=== PATIENT | male | born 1965 | race Two or more races ===

== ENCOUNTER 2024-09-27 12:58 | Inpatient (IN) | payer BC, SELFPAY ==
[2024-09-27] VITALS (96 sets, daily range): BP systolic 000000–172; BP diastolic 0–128; PULSE 92–246; RESP 10–45; TEMP 37.6–40.2; O2SAT 92–100; BMI 43.7
--- NOTE | 2024-09-27 13:42 | XR_ITS ---
Examination: AP chest single view Technique: AP portable semiupright chest single view Exam date and time: September 27, 2024 1421 hrs. Indications: Sepsis shortness of breath today Findings: Mild heart failure Mild to moderate enlargement cardiac contour with prominent vascular congestion including central vascular engorgement Suspicious for early superimposed pneumonia at the lung bases Impression: Mild heart failure Suspicious for early superimposed pneumonia at the lung bases
--- NOTE | 2024-09-27 13:42 | EKG_ITS ---
[facility] Test Date: 2024-09-27 Pat Name: TONY SAVAGE Department: Room: - Gender: Male Spinal Surgeon: : [id number] Requested By: Mauri Myers Order Number: [id number] Reading MD: Mauri Myers Measurements Intervals [place] Rate: 206 P: MD: QRS: -78 QRSD: 139 T: 33 QT: 230 QTc: 427 Interpretive Statements ATRIAL FIBRILLATION WITH RAPID VENTRICULAR RESPONSE RIGHT BUNDLE BRANCH BLOCK [120+ ms QRS DURATION, UPRIGHT V1, 40+ ms S IN I/aVL/V4/V5/V6] INFERIOR MYOCARDIAL INFARCTION , OF INDETERMINATE AGE [40+ ms Q WAVE AND/OR ST/T ABNORMALITY IN II/aVF] Compared to ECG 06/27/2024 20:49:31 Right bundle-branch block now present Myocardial infarct finding now present Sinus rhythm no longer present /store/S0/[id number]/ecg/[id number].pdf
--- NOTE | 2024-09-27 13:45 | PD.EDSOB ---
ED SOB =RME/HPI General Chief Complaint: Shortness of Breath/Dyspnea Stated Complaint: HARD TIME BREATHING , SORE THROAT, CX PAIN, FEVER Time Seen by Provider: 09/27/24 13:44 Arrival date/time: 09/27/24 12:58 RME / HPI RME / HPI Narrative: DR. NEVAREZ MAIN ED EVALUATION: 59 year old male presents to the Emergency Department accompanied by his with complaints of shortness of breath, nasal congestion, fevers, chills, cough, sore throat, and generalized body aches. Symptoms are moderate. Patient denies any nausea, vomiting, diarrhea, or any other symptoms at this time. PMHx: Atrial fibrillation on Xarelto, CHF, diabetes, hypercholesterolemia. Social Hx: No tobacco, alcohol, or substance use. Related Data Home Medications ?Medication ?Instructions ?Recorded ?Confirmed glipizide 10 mg tablet, extended 10 mg PO BID 10/25/23 10/25/23 release 24 hr metformin 500 mg tablet 500 mg PO BID 10/25/23 10/25/23 tirzepatide 7.5 mg/0.5 mL 7.5 mg subcut QWEEK 10/25/23 10/25/23 subcutaneous pen injector (Edgarunbernard) Previous Rx's ?Medication ?Instructions ?Recorded atorvastatin 20 mg tablet 40 mg (2 x 20 mg) PO HS #30 tabs 10/26/23 flecainide 50 mg tablet 100 mg (2 x 50 mg) PO BID #30 tabs 10/26/23 magnesium oxide 400 mg (241.3 mg 400 mg PO BID #60 tabs 10/26/23 magnesium) tablet metoprolol succinate 25 mg 50 mg (2 x 25 mg) PO QDAY #30 tabs 10/26/23 tablet,extended release 24 hr rivaroxaban 10 mg tablet (Xarelto) 20 mg (2 x 10 mg) PO QDAY #30 tabs 10/26/23 amoxicillin 875 mg-potassium 1 tab PO BID #14 tabs 06/27/24 clavulanate 125 mg tablet ibuprofen 800 mg tablet 800 mg PO TID PRN pain #30 tabs 06/27/24 Allergies Allergy/AdvReac Type Severity Reaction Status Date / Time No Known Allergies Allergy Verified 09/27/24 13:00 Review of Systems Review of Systems Systems Reviewed: All systems reviewed, normal except as documented Narrative Review of Systems: GEN: + fever, no chills, no weight loss EYES: No discharge, no visual changes, no pain HEENT: No ear pain, + nasal congestion, + sore throat PULM: + shortness of breath, + cough CV: No chest pain, no dyspnea on exertion, no palpitations GI: No nausea, no vomiting, no diarrhea, no pain, no constipation : No frequency, no urgency and no dysuria MUSC/SKEL: + generalized body aches, no back pain SKIN: No rash PSYCH: No hallucinations, no depression HEME/LYMPH: No easy bleeding or bruising tendencies NEURO: No weakness, no headache Past Medical History Past Medical History CARDIAC: Positive Cardiac Disorders (htn); Negative Congestive Heart Failure RESPIRATORY: Positive Pneumonia; Negative Chronic Obstructive Pulmonary Disease (COPD) or Asthma GENITOURINARY: Positive Kidney Stones; Negative Renal Disease ENDOCRINE: Positive Diabetes Mellitus Type 2; Negative Diabetes Mellitus Type 1 HEMATOLOGIC: Negative Sickle Cell Disease Surgical History SURGICAL: Positive Abdominal Surgery Social History SMOKING STATUS: Never smoker SUBSTANCE USE: does not use ALCOHOL: Never ED Exam Narrative Physical exam: GENERAL APPEARANCE: Well hydrated, well nourished, in some respiratory acute distress. Obese. VITALS: All vitals were reviewed and the pulse ox is 94% on room air which is normal according to my interpretation. HEENT: Normocephalic, atramatic, EOMI, EACs are patent. There is no bulge or retraction. Throat without erythema or exudate. Moist oromucosa. No jaundice NECK: Supple, no JVD or bruits. CARDIOVASCULAR: Heart is tachycardic, consistent with atrial fibrillation. LUNGS/CHEST: Wet sounds. ABDOMEN: Soft, nontender, with normal bowel sounds. No pulsatile masses. No rebound, rigidity, or guarding. No incarcerated hernia. Normal inspection and palpation. EXTREMITIES: No edema, clubbing, or cyanosis. Intact CSM. Normal inspection and palpation. SKIN: Warm and dry without rashes. Normal inspection. MUSCULOSKELETAL: No gross deformity, full ROM all extremities. Normal inspection. NEURO: Alert and oriented x3. Cranial nerves II through XII grossly intact. There are no other motor or sensory deficits noted. PSYCHIATRIC: Normal mood and affect. No psychosis. Course Quality Measures none Orders Category Date Time Status Bedside COVID-19 Antigen Test NOW Care 09/27/24 14:29 Active Bedside Influenza A&B Antigen Test NOW Care 09/27/24 14:30 Active Media Services Director Q4H START 00 Care 09/27/24 13:54 Active EKG (ED ONLY) *Do not use* NOW Care 09/27/24 13:44 Completed Consult to Cardiology Stat Cons 09/27/24 14:49 Ordered EKG (ED Only) Stat Exams 09/27/24 13:42 Draft XR chest 1V portable Stat Exams 09/27/24 13:42 Taken Arterial Blood Gas Stat Lab 09/27/24 14:32 Completed B-Type Natriuretic Peptide Stat Lab 09/27/24 13:54 Received Blood Culture (Lab) Stat Lab 09/27/24 13:44 Ordered CBC Stat Lab 09/27/24 13:54 Completed Comprehensive Metabolic Panel Stat Lab 09/27/24 13:54 Completed Lactate (Lactic Acid) Stat Lab 09/27/24 13:54 Results Procalcitonin Stat Lab 09/27/24 13:54 Completed RSV [Respiratory Syncytial Virus Ag] Stat Lab 09/27/24 15:04 Ordered Strep A Rapid Stat Lab 09/27/24 15:04 Ordered Troponin I Stat Lab 09/27/24 13:54 Completed Adenosine 6mg Inj [Adenocard Inj] Med 09/27/24 13:52 Discontinued 12 mg IVP X1 ONE Adenosine 6mg Inj [Adenocard Inj] Med 09/27/24 13:52 Discontinued 12 mg IVP X1 ONE Adenosine 6mg Inj [Adenocard Inj] Med 09/27/24 13:52 Discontinued 6 mg IVP X1 ONE Amiodarone 150 mg Ivpb [Nexterone Ivpb] Med 09/27/24 14:35 Discontinued 150 mg in 100 ml IV 600 mls/hr Amiodarone 360 mg Ivpb [Nexterone Ivpb] Med 09/27/24 20:45 Active 360 mg in 200 ml IV 16.667 mls/hr Amiodarone 360 mg Ivpb [Nexterone Ivpb] Med 09/27/24 14:45 Active 360 mg in 200 ml IV 33.333 mls/hr Diltiazem Inj [Cardizem Inj] Med 09/27/24 13:53 Discontinued 25 mg IV X1 ONE Furosemide Inj [Lasix Inj] Med 09/27/24 14:05 Discontinued 80 mg IVP X1 ONE Lidocaine/D5w 1,000 mg Ivpb [Xylocaine in D5w Ivpb] Med 09/27/24 14:01 Discontinued 1,000 mg in 250 ml IV .STK-MED Lidocaine/D5w 1,000 mg Ivpb [Xylocaine in D5w Ivpb] Med 09/27/24 14:08 Active 1,000 mg in 250 ml IV 2 mg/min Midazolam Inj [Versed Inj] Med 09/27/24 13:59 Discontinued 5 mg IV X1 ONE Midazolam Inj [Versed Inj] Med 09/27/24 13:56 Discontinued 6 mg .ROUTE .STK-MED ONE Nitroglycerin Oint 2% [Nitro-paste Oint 2%] Med 09/27/24 14:09 Discontinued 1 inch TOP .STK-MED ONE Nitroglycerin Oint 2% [Nitro-paste Oint 2%] Med 09/27/24 14:12 Discontinued 1 inch TOP X1 ONE fentaNYL INJ [Sublimaze Inj] Med 09/27/24 14:00 Discontinued 50 mcg IVP X1 ONE BiPAP / CPAP NOW RT 09/27/24 14:27 Active Vital Signs Vital signs: Vital Signs Temperature 100.2 F 09/27/24 13:36 Pulse Rate 180 H 09/27/24 13:36 Respiratory Rate 22 H 09/27/24 13:36 Blood Pressure 167/94 H 09/27/24 13:36 Pulse Oximetry (%) 94 L 09/27/24 13:36 Oxygen Delivery Method Room Air 09/27/24 13:36 Shortness of Breath / Dyspnea MDM Narrative MDM Narrative:: ILu am scribing for and in the presence of Dr. Nevarez. Upon arrival to the emergency department the patient heart rate was 170 to 206 bpm. And the twelve-lead EKG clearly show atrial fibrillation with rapid ventricular response and right bundle branch block. Twelve-lead EKG that was done at 1340 6 PM and interpreted by me: Atrial fibrillation with rapid ventricular response. Right bundle branch block. Heart rate of 206. Left axis deviation. No ST segment elevation. No ST segment depression. No PVC. No STEMI. We brought the patient into room #1. We gave the patient adenosine 6 mg IV but it did not do anything. While waiting for adenosine 12 mg dose, the patient went into V. tach and that was approximately 1358 caught by rhythm monitor. And printed in the ER record. I gave the patient 100 mg of lidocaine IV bolus. It appears that there is nothing changes. Then we cardioverted the patient with a 100 J biphasic synchronized electricity. And that successfully converted the patient to sinus rhythm. Twelve-lead EKG that was done at 1418 and interpreted by me: Sinus rhythm. Heart: 127. Left axis. Right bundle branch block. No ST elevation or depression. No PVC. No STEMI. Regular rate and rhythm along with motion artifacts ABG was normal. Showed no sign of CO2 retention. And O2 saturation is good. Lactic acid was 2.9. Troponin is negative. Procalcitonin is negative. Troponin negative. COVID-19, influenza, RSV, group A strep are still pending at this time. Portable chest x-ray interpreted by me: Enlarged heart. Evidence of CHF. No pleural effusion. Positive for cardiomegaly. Normal bones. 2:40 PM, I spoke to and discussed with Dr. Abdullahi, food preparation worker on-call as well with patient's own food preparation worker. He recommended to stop the lidocaine drip and to give the patient amiodarone bolus and then drip according to the protocol. 2:55 PM, I spoke to and discussed with Dr. torres, offender employment specialist on-call. He agrees to assess the patient for admission. Critical care time is approximately 45 minutes excluding any procedure. The high probability of sudden, clinically significant deterioration in the patient?s condition required the highest level of my preparedness to intervene urgently. The services I provided to this patient were to treat and/or prevent clinically significant deterioration. Services included the following: chart data review, reviewing nursing notes and/or old charts, documentation time, senior talent management consultant collaboration regarding findings and treatment options, medication orders and management, direct patient care, vital sign assessments and ordering, interpreting and reviewing diagnostic studies and lab tests. Aggregate critical care time includes only time during which I was engaged in work directly related to the patient?s care, as described above, whether at bedside or elsewhere in the Emergency Department. It did not include time spent performing other reported procedures or the services of residents, students, nurses or physician assistants. Patient data External records reviewed:: [facility] previous records (Reviewed last ED visit dated 06/27/24, discharged with the following: Community acquired pneumonia.) Clinical information provided by:: patient and spouse () Social determinants that could affect healthcare access:: none Patient has the following chronic illnesses:: Atrial fibrillation on Xarelto, CHF, diabetes, hypercholesterolemia. How is presenting disease/condition affected by chronic disease/condition?: exacerbated by Evaluation data The following diagnostics were reviewed and interpreted by me:: lab results, radiology exam(s) and EKG tracing(s) Lab and/or radiology exams considered but not ordered:: none Interpretation Summary: See above under MDM narrative. Medications / Prescriptions Medications or Prescriptions considered but not ordered:: none Medication administrations:: Medication Administration History Lidocaine HCl/Dextrose (Xylocaine In D5w Ivpb) 1,000 mg in 250 mls @ 30 mls/hr IV .Q8H20M RAÚL; Protocol Stop: 10/27/24 14:07 Last Infusion: 09/27/24 14:54 Dose: Infused Documented By: Admin: 09/27/24 14:43 Dose: 2 mg/min, 30 mls/hr Documented By: AM Amiodarone HCl/Dextrose (Nexterone Ivpb) 360 mg in 200 mls @ 33.333 mls/hr IV .Q6H ONE Stop: 09/27/24 20:44 Amiodarone HCl/Dextrose (Nexterone Ivpb) 360 mg in 200 mls @ 16.667 mls/hr IV .Q12H RAÚL Stop: 09/28/24 20:44 Discontinued Medications Adenosine (Adenosine Inj 3 Mg/Ml Vial) 6 mg IVP X1 ONE Stop: 09/27/24 13:53 Last Admin: 09/27/24 13:58 Dose: 6 mg Documented By: AM Adenosine (Adenosine Inj 3 Mg/Ml Vial) 12 mg IVP X1 ONE Stop: 09/27/24 13:53 Last Admin: 09/27/24 14:40 Dose: Not Given Documented By: AM Non-Admin Reason: Other, see note Adenosine (Adenosine Inj 3 Mg/Ml Vial) 12 mg IVP X1 ONE Stop: 09/27/24 13:53 Last Admin: 09/27/24 14:40 Dose: Not Given Documented By: AM Non-Admin Reason: Other, see note Diltiazem HCl (Diltiazem Inj 5 Mg/Ml Vial 5 Ml) 25 mg IV X1 ONE Stop: 09/27/24 13:54 Last Admin: 09/27/24 14:41 Dose: Not Given Documented By: AM Non-Admin Reason: Other, see note Fentanyl Citrate (Fentanyl Cit Inj 50 Mcg/Ml Amp 2ml) 50 mcg IVP X1 ONE Stop: 09/27/24 14:01 Last Admin: 09/27/24 14:04 Dose: 50 mcg Documented By: AM Furosemide (Furosemide Inj 10 Mg/Ml 4ml Vial) 80 mg IVP X1 ONE Stop: 09/27/24 14:06 Last Admin: 09/27/24 14:11 Dose: 80 mg Documented By: AM Lidocaine HCl/Dextrose (Xylocaine In D5w Ivpb) Confirm Administered Dose 1,000 mg in 250 mls @ ud IV .STK-MED ONE Stop: 09/27/24 14:02 Last Admin: 09/27/24 14:43 Dose: Not Given Documented By: AM Non-Admin Reason: Override Medication Amiodarone HCl/Dextrose (Nexterone Ivpb) 150 mg in 100 mls @ 600 mls/hr IV .Q10M ONE Stop: 09/27/24 14:44 Last Admin: 09/27/24 14:56 Dose: 600 mls/hr Documented By: AM Midazolam HCl (Midazolam Inj 1 Mg/Ml Vial 2 Ml) 5 mg IV X1 ONE Stop: 09/27/24 14:00 Last Admin: 09/27/24 14:03 Dose: 5 mg Documented By: AM Midazolam HCl (Midazolam Inj 1 Mg/Ml Vial 2 Ml) Confirm Administered Dose 6 mg .ROUTE .STK-MED ONE Stop: 09/27/24 13:57 Last Admin: 09/27/24 14:10 Dose: Not Given Documented By: AM Non-Admin Reason: Override Medication Nitroglycerin (Nitroglycerin Oint 2% 1 Inch Packet) 1 inch TOP X1 ONE Stop: 09/27/24 14:13 Last Admin: 09/27/24 14:15 Dose: 1 inch Documented By: AM Nitroglycerin (Nitroglycerin Oint 2% 1 Inch Packet) Confirm Administered Dose 1 inch TOP .STK-MED ONE Stop: 09/27/24 14:10 Last Admin: 09/27/24 14:41 Dose: Not Given Documented By: AM Non-Admin Reason: Override Medication see above Consultations Consultation(s) initiated? (list below): Yes Consultation #1 (Physician, Specialty, Details): Discussed test HPI, PMHx, lab, radiology results and/or management with single pointed operator. Will admit for further evaluation and management. Accepts patient for admission. Time: 14:52 Diagnosis Shortness of Breath Differential Diagnosis: acute exacerbation of chronic obstructive airways disease, congestive heart failure, community acquired pneumonia and asthma with exacerbation Most likely diagnosis given after review of the tests above:: Cardiac dysrhythmia V. tach Rapid A-fib Cardioversion Congestive heart failure Admission Indicated Admission indicated?: indicated Admission Request Was there a request for admission?: Yes Admission Attestation Admission request attestation: Discussed case with [] from Hospitalist service regarding admission. Discussed patients ED course, exam findings, labs, and radiology results. The Hospitalist [agrees,declines] to accept the patient for admission. Disposition Plan Disposition Plan: Admit Discharge Plan Plan Patient Disposition: Admit Acute Care w/in Hospital Disposition Comment: Stable for admission Prescriptions/Referrals Prescriptions/Med Rec: No Action Mounjaro 7.5 mg/0.5 mL pen injector 7.5 mg SUBCUT QWEEK Patient Comments: INJECT 1 PEN (7.5MG) SUBCUTANEOUSLY ONCE A WEEK DIRECTED Rx Instructions: every sunday glipizide 10 mg tablet extended release 24hr 10 mg PO BID Patient Comments: TAKE 1 TABLET BY MOUTH EVERY DAY IN THE MORNING AND TAKE 1 TABLET BY MOUTH WITH DINNER metformin 500 mg tablet 500 mg PO BID Patient Comments: TAKE 1 TABLET BY MOUTH TWICE A DAY WITH A MEAL FOR 90 DAYS atorvastatin 20 mg Tablet 40 mg PO HS Qty: 30 0RF magnesium oxide 400 mg (241.3 mg magnesium) Tablet 400 mg PO BID Qty: 60 0RF flecainide 50 mg Tablet 100 mg PO BID Qty: 30 0RF metoprolol succinate 25 mg Tablet Extended Release 24 Hr 50 mg PO QDAY Qty: 30 0RF Xarelto 10 mg Tablet 20 mg PO QDAY Qty: 30 0RF amoxicillin-pot clavulanate 875-125 mg tablet 1 tab PO BID Qty: 14 0RF ibuprofen 800 mg tablet 800 mg PO TID PRN (Reason: pain) Qty: 30 0RF Referrals: Andrea Lee MD [Primary Care Provider] - In 1 week Problem List Clinical Impression: Cardiac dysrhythmia, Congestive heart failure, Encounter for cardioversion procedure Patient/Caregiver Discharge Instructions Print Language: Tajik Stand Alone Forms: Alyssa Award Info., Patient Portal Info Letter
[2024-09-27] MEDS: ADENOSINE INJ 3 MG/ML VIAL 6 MG IVP (13:58)
[2024-09-27] MEDS: MIDAZOLAM INJ 1 MG/ML VIAL 2 ML 5 MG IV (14:03)
[2024-09-27] MEDS: fentaNYL CIT INJ 50 mCg/ML AMP 2ML IVP (14:04)
[2024-09-27 14:07] LABS: Lactate (Lactic Acid) 2.9 mMol/L (0.4-2.0)
[2024-09-27 14:11] LABS: Basophils # (Auto) 0.1 Thou/mm3 (0.0-0.2); Basophils % (Auto) 0 % (0-2.5); Eosinophils # (Auto) 0.3 Thou/mm3 (0.0-0.5); Eosinophils % (Auto) 2 % (0-10); Hematocrit 45.8 % (41.0-53.0); Hemoglobin 15.5 g/dL (13.5-16.0); Immature Granulocytes % (Auto) 1 % (0-0); Immature Granulocytes Auto 0.08 Thou/mm3 (0.00-0.00); Lymphocytes # (Auto) 1.6 Thou/mm3 (1.0-4.8); Lymphocytes % (Auto) 11 % (10-50); Mean Corpuscular HGB Conc 33.8 g/dl (31.0-37.0); Mean Corpuscular Hemoglobin 27.2 pg (25.0-35.0); Mean Corpuscular Volume 81 fL (80-100); Monocytes % (Auto) 7 % (0-12); Neutrophils # (Auto) 11.5 Thou/mm3 (1.8-7.7); Neutrophils % (Auto) 79 % (37-80); Nucleated Red Blood Cell % 0 /100 WBC (0); Platelet Count 249 Thou/mm3 (140-440); RDW Standard Deviation 43.4 fL (35.1-43.9); Red Blood Count 5.69 Miln/mm3 (4.50-5.90); White Blood Count 14.5 Thou/mm3 (3.8-10.6)
[2024-09-27] MEDS: FUROSEMIDE INJ 10 MG/ML 4ML VIAL 80 MG IVP (14:11)
[2024-09-27] MEDS: NITROGLYCERIN OINT 2% 1 INCH PACKET TOP (14:15)
[2024-09-27 14:38] LABS: Allen Test Performed/OK; Base Excess 0 (-3-3); HCO3 25 mEq/L (20-26); Inspired O2, VO2 Liters 15 L/min; Inspired Oxygen, FIO2 21 %; O2 Saturation 98 % (91-98); PCO2 40 mmHg (32.0-48.0); PO2 92 mmHg (83-108); Puncture Site Left Radial
[2024-09-27 14:40] LABS: Alanine Aminotransferase 14 U/L (10-49); Albumin, Serum 4.9 gm/dL (3.4-4.8); Albumin/Globulin Ratio 1.5 (1.2-2.2); Alkaline Phosphatase 78 U/L (46-116); Anion Gap 10 (7-16); Aspartate Amino Transferase 20 U/L (0-34); BUN/Creatinine Ratio 12 Ratio (12-20); Bilirubin,Total 2.6 mg/dL (0.3-1.2); Blood Urea Nitrogen 12 mg/dL (9-23); Calcium 9.6 mg/dL (8.3-10.6); Calcium (Corrected) 9.6 mg/dL (8.5-10.1); Carbon Dioxide 25.1 mMol/L (20.0-31.0); Chloride 101 mMol/L (98-107); Estimated Creatinine Clearance 105.5 mL/min (>60); Globulin 3.2 gm/dL (2.3-3.5); Glucose 161 mg/dL (74-106); Osmolality,Calculated 274 (275-295); Sodium 136 mMol/L (136-145); Total Protein 8.1 gm/dL (5.7-8.2); Troponin I < 0.020 ng/mL (0.0-0.045); eGFR > 60 See Note
[2024-09-27] MEDS: LIDOCAINE IV (14:43)
[2024-09-27] MEDS: D5W IV (14:43)
[2024-09-27] MEDS: AMIODARONE 150 MG IVPB 150 MG/100 ML BAG 600 MG IV (14:56)
[2024-09-27 14:59] LABS: Respiratory Syncytial Virus Ag Positive (Negative); Strep A Rapid Negative (Negative)
[2024-09-27 15:05] LABS: B-Type Natriuretic Peptide 20 pg/mL (0-100)
--- NOTE | 2024-09-27 15:06 | PC.NURSE ---
ICU TEAM AT BEDSIDE
--- NOTE | 2024-09-27 15:09 | PC.NURSE ---
1353 pT ON ROOM 19. pT HAVING SOB, FEELS LIKE HE CANNOT BREATHE, HR 190- THEN UP TO 23\3 BPM. EKG COMPLETED BY RODNEY. IV LINE PLACED TO RIGHT A/C . PT MOVED TO ROOM 1
[2024-09-27] MEDS: AMIODARONE 360 MG IVPB 360 MG/200 ML BAG 33.333 MG IV (15:14)
[2024-09-27 16:02] LABS: Lactate (Lactic Acid) 4.6 mMol/L (0.4-2.0)
--- NOTE | 2024-09-27 16:17 | ESHP_ITS ---
<Statement entered by Kristen Matthew DO - 09/28/24 14:12> Senior attestation: Patient was examined and case was reviewed with team including attending physician. Note reviewed, I agree with most of its contents and agree with the patient's care. In summary, patient is a 59 year old male with history of hyperlipidemia and admissions for recurrent Afib with RvR episodes, H2DM, and KODI/OHS on CPAP who presented to the ED with concerns of shortness of breath following recent exposure to RSV, found to be in Atrial fibrillation with RvR with heart rate 206. In ED, patient was given adenosine x1 however converted to ventricular tachycardia and was then given lidocaine, subsequently underwent cardioversion x1 resulting in sinus tachycardia ~ [address] Lee was consulted in ED, advised starting IV amiodarone bolus followed by amiodarone drip with plan to transition to PO amiodarone. Sepsis alert called after repeat lactic acid increased to 4.6, will be started on broad spectrum IV azithromycin and IV rocephin for CAP coverage, with supportive treatment for RSV findings, blood and urine cultures ordered. Patient received IV bolus fluids with IV maintenance fluids started, repeat lactic acid levels normalized. Will begin insulin sliding scale given history of T2DM, A1c ordered. Patient will be admitted to ICU for close monitoring given atrial fibrillation with aberrancy findings today s/p cardioversion. Kristen Matthew DO PGY-3 Documentation for date of: 09/27/24 HPI History of Present Illness Chief complaint: SOB, chest pain History of present illness: Charles Chavez is a 59 yr male with PMH of HLD, frequent admissions due to recurrent episodes of A-fib RVR with RBBB, zzj-rbvykmr-ybfxthrtl type 2 diabetes, morbid obesity, KODI/OHS on CPAP who presented to ED after experiencing worsening SOB and chest pain. Patient is A&Ox3 however additional history obtained from and chart review as well. She stated that at 3 AM this morning he woke up with a headache which improved with Tylenol. Patient also complained of sore throat, body aches, nasal congestion, chest pain, shortness of breath. had stated that normally patient has difficulty in baseline physical activity such as walking upstairs and worsening shortness of breath when walking short distances. Patient is compliant with medications and uses CPAP nightly. In May 2023, patient had presented to [facility] due to similar symptoms. Echo showed normal LVEF and normal RV function. Patient also had cardiac cath done revealing 30-40% stenosis of proximal and mid LAD. He was diagnosed with Afib. At that time cardiology Dr. Melchor had started patient on flecainide, Xarelto, Cardizem. Placing Judge Dr. Ivey had subsequently seen patient in October 2023 at [facility] due to repeat symptoms. Patient was discharged on flecainide 100 mg twice daily, metoprolol 50 mg daily, Xarelto 20 mg daily, magnesium oxide 40 mg twice daily, Lipitor 40 mg daily due to Afib RVR with RBB. Per , he has a standing appointment to see Dr. Ivey on October 14, 2024. It was recommended that patient see circus laborer for possible ablation. Unclear at this time if patient did follow-up. In the ED, 12 lead EKG showed AFib RVR with RBBB. HR was 206. Patient received one round of electrocardio conversion in and 6 mg adenosine x 1. Patient then reverted back regular rhythm but remained tachycardic with pulse of 130. Vitals significant for fever 104.4, tachycardia 120?125, respiratory rate 22, on BiPAP saturating 100%. Labs reveal leukocytosis 14.5, sodium 136, potassium 4.0, bicarb 25, creatinine 1.0, glucose 161, elevated lactic acid 2.9 with repeat after two hours worsened to 4.6, elevated bilirubin 2.6, troponins negative, UA negative for infection. RSV positive. Diagnostic imaging: Chest x-ray suspicious for superimposed pneumonia at lung bases, mild heart failure pattern. CT A/P from 06/27/2024 showed enhancing posterior right lobe liver lesion at 20 mm. Patient admitted to ICU for observation s/p cardioversion and treatment for severe sepsis secondary to pneumonia. PMH: As noted above PSH: abdominal surgery FamHx: HTN, DM, CAD Social: Currently unemployed. Denies any smoking, drinking, illicit drug use. Review of Systems Review of Systems Systems Reviewed: All systems reviewed, normal except as documented Exam Vital Signs Temp Pulse Resp BP Pulse Ox O2 Del Method FiO2 104.4 F H 128 H 35 H 135/87 H 99 BiPAP 40 09/27/24 15:55 09/27/24 16:11 09/27/24 16:11 09/27/24 15:55 09/27/24 16:11 09/27/24 15:55 09/27/24 16:11 Narrative Exam General: Alert and oriented x3. Moderate distress, cooperative Eyes: Pupils are equal and reactive to light bilaterally HEENT: Atraumatic, normocephalic. No JVD noted. Cardiovascular: Normal S1 and S2. Tachycardic, regular rhythm. No pitting edema Respiratory: Difficult to auscultate due to body habitus, on BiPAP Abdomen: Soft, nontender, obese, normal bowel sounds. Skin: Warm to touch, dry, no rashes noted Musculoskeletal: No gross injuries. Able to move all 4 extremities. Neuro: Alert and oriented x3. No focal neuro deficits, grossly intact Psych: Normal affect and mood Results: Labs 09/30/24 04:52 09/30/24 04:52 Labs: Short CBC 09/27/24 Range/Units 13:54 WBC 14.5 H (3.8-10.6) Thou/mm3 Hgb 15.5 (13.5-16.0) g/dL Hct 45.8 (41.0-53.0) % Plt Count 249 (140-440) Thou/mm3 BMP 09/27/24 13:54 Sodium 136 Potassium 4.0 Chloride 101 Carbon Dioxide 25.1 BUN 12 Creatinine 1.0 Glucose 161 H Calcium 9.6 Cardiac Enzymes 09/27/24 Range/Units 13:54 Troponin I < 0.020 (0.0-0.045) ng/mL Liver Function 09/27/24 Range/Units 13:54 Total Bilirubin 2.6 H (0.3-1.2) mg/dL AST 20 (0-34) U/L ALT 14 (10-49) U/L Alkaline Phosphatase 78 (46-116) U/L Albumin 4.9 H (3.4-4.8) gm/dL ABG Interpretation ABG results: 09/27/24 14:32 ABG pH 7.40 ABG pCO2 40 ABG pO2 92 ABG HCO3 25 ABG O2 Saturation 98 ABG Base Excess 0 Quality Measures Quality Measures none Medications Home Medications and Allergies Home Medications ?Medication ?Instructions ?Recorded ?Confirmed ?Type metformin 500 mg tablet 500 mg PO BID 10/25/23 09/28/24 History tirzepatide 7.5 mg/0.5 mL 15 mg subcut QWEEK 10/25/23 09/28/24 History subcutaneous pen injector (Kirby) atorvastatin 40 mg tablet 40 mg PO HS 09/28/24 09/28/24 History cholecalciferol (vitamin D3) 125 125 mcg PO QDAY 09/28/24 09/28/24 History mcg (5,000 unit) tablet (Vitamin D3) fexofenadine 180 mg tablet 180 mg PO QDAY PRN Allergy Symptoms 09/28/24 09/28/24 History (Allergy Relief (fexofenadine)) gabapentin 400 mg capsule 600 mg PO QDAY 09/28/24 09/29/24 History magnesium 100 mg tablet 100 mg PO QDAY 09/28/24 09/28/24 History milk thistle seed extract 250 mg 250 mg PO QDAY 09/28/24 09/28/24 History capsule flecainide 100 mg tablet 100 mg PO Q12H 09/30/24 09/30/24 History Allergies Allergy/AdvReac Type Severity Reaction Status Date / Time No Known Allergies Allergy Verified 09/27/24 13:00 Visit Medications Acetaminophen (Acetaminophen 325 Mg Tablet) 650 mg PO Q6H PRN PRN Reason: Fever >100.3 or pain Stop: 10/27/24 15:49 Atorvastatin Calcium (Atorvastatin Calcium 20 Mg Tablet) 40 mg PO HS RAÚL Stop: 10/27/24 20:59 Dextrose (Dextrose 50%-Water Inj 50 Ml Syringe) 25 ml IV Q15MIN PRN PRN Reason: BG 50-70 responsive npo pt Stop: 10/27/24 15:56 Dextrose (Dextrose 50%-Water Inj 50 Ml Syringe) 50 ml IV Q15MIN PRN PRN Reason: BG <50 OR BG <70 & pt unresponsive Stop: 10/27/24 15:56 Glucagon (Glucagon Inj 1 Mg Vial) 1 mg IM Q15MIN PRN PRN Reason: BG <70, and no IV access Heparin Sodium (Porcine) (Heparin Sod Inj 5000 Unit/Ml Vial) 5,000 unit SC Q12HR [facility] Stop: 10/11/24 20:59 Lidocaine HCl/Dextrose (Xylocaine In D5w Ivpb) 1,000 mg in 250 mls @ 30 mls/hr IV .Q8H20M RAÚL; Protocol Stop: 10/27/24 14:07 Last Infusion: 09/27/24 14:54 Dose: Infused Amiodarone HCl/Dextrose (Nexterone Ivpb) 360 mg in 200 mls @ 33.333 mls/hr IV .Q6H ONE Stop: 09/27/24 20:44 Last Admin: 09/27/24 15:14 Dose: 33.333 mls/hr Amiodarone HCl/Dextrose (Nexterone Ivpb) 360 mg in 200 mls @ 16.667 mls/hr IV .Q12H RAÚL Stop: 09/28/24 20:44 Sodium Chloride (Ns) 1,000 mls @ 999 mls/hr IV .Q1H1M ONE Stop: 09/27/24 17:00 Sodium Chloride (Ns) 1,000 mls @ 125 mls/hr IV .Q8H RAÚL Stop: 09/28/24 16:03 Ceftriaxone Sodium 2 gm/ (Sodium Chloride) 50 mls @ 100 mls/hr IV QDAY [facility] Stop: 10/02/24 16:14 Azithromycin 500 mg/ Sodium (Chloride) 250 mls @ 250 mls/hr IV QDAY [facility] Stop: 10/02/24 16:08 Insulin Human Lispro (Insulin Lispro (Admelog) 1 Unit/0.01 Ml Unit) 0 unit SC AC [facility]; Protocol Stop: 10/27/24 16:59 Metoprolol Succinate (Metoprolol Succinate Xl 25 Mg Tabcr) 100 mg PO QDAY [facility] Stop: 10/27/24 15:44 Ondansetron HCl (Ondansetron Inj 2 Mg/Ml Inj 2 Ml) 4 mg IV Q6H PRN; Protocol PRN Reason: NAUSEA OR VOMITING Stop: 10/27/24 15:49 Pantoprazole Sodium (Pantoprazole Inj 40 Mg Vial) 40 mg IVP QDAY [facility] Stop: 10/27/24 15:59 Sennosides (Senna Tablet) 1 tab PO QDAY PRN; Protocol PRN Reason: constipation Stop: 10/27/24 15:49 Discontinued Medications Adenosine (Adenosine Inj 3 Mg/Ml Vial) 6 mg IVP X1 ONE Stop: 09/27/24 13:53 Last Admin: 09/27/24 13:58 Dose: 6 mg Adenosine (Adenosine Inj 3 Mg/Ml Vial) 12 mg IVP X1 ONE Stop: 09/27/24 13:53 Last Admin: 09/27/24 14:40 Dose: Not Given Adenosine (Adenosine Inj 3 Mg/Ml Vial) 12 mg IVP X1 ONE Stop: 09/27/24 13:53 Last Admin: 09/27/24 14:40 Dose: Not Given Diltiazem HCl (Diltiazem Inj 5 Mg/Ml Vial 5 Ml) 25 mg IV X1 ONE Stop: 09/27/24 13:54 Last Admin: 09/27/24 14:41 Dose: Not Given Fentanyl Citrate (Fentanyl Cit Inj 50 Mcg/Ml Amp 2ml) 50 mcg IVP X1 ONE Stop: 09/27/24 14:01 Last Admin: 09/27/24 14:04 Dose: 50 mcg Furosemide (Furosemide Inj 10 Mg/Ml 4ml Vial) 80 mg IVP X1 ONE Stop: 09/27/24 14:06 Last Admin: 09/27/24 14:11 Dose: 80 mg Amiodarone HCl/Dextrose (Nexterone Ivpb) 150 mg in 100 mls @ 600 mls/hr IV .Q10M ONE Stop: 09/27/24 14:44 Last Admin: 09/27/24 14:56 Dose: 600 mls/hr Midazolam HCl (Midazolam Inj 1 Mg/Ml Vial 2 Ml) 5 mg IV X1 ONE Stop: 09/27/24 14:00 Last Admin: 09/27/24 14:03 Dose: 5 mg Nitroglycerin (Nitroglycerin Oint 2% 1 Inch Packet) 1 inch TOP X1 ONE Stop: 09/27/24 14:13 Last Admin: 09/27/24 14:15 Dose: 1 inch Sodium Chloride (Sodium Chloride Rt 10% 15 Ml Nebu) 5 ml INH X1 ONE Stop: 09/27/24 16:11 Assessment & Plan Plan Charles Chavez is a 59 yr male with PMH of HLD, frequent admissions due to recurrent episodes of A-fib RVR with RBBB, lpo-qsycrky-fgggbehay type 2 diabetes, morbid obesity, KODI/OHS on CPAP who presented to ED after experiencing worsening SOB and chest pain. 12 lead EKG showed AFib RVR with RBBB. Patient received one round of electrocardio conversion in and 6 mg adenosine x 1. Patient admitted to ICU for observation s/p cardioversion and treatment for severe sepsis secondary to pneumonia. Neuro: -no active problems CVS: #Afib RVR with RBB In ED, patient received 1 round electrocardio conversion and 6 mg adenosine x 1. Troponins were negative. Unclear at this time if patient was able to follow-up with EP for possible ablation therapy due to recurrent episodes of chest pain and shortness of breath due to the underlying dysrhythmia. Per , patient is to see Dr. Ivey this month. Dr. Lee was consulted and patient was admitted to ICU for observation and treatment of A-fib with RBBB. CHADSVASC score 1 (hx DM) 0.6% stroke risk per year. Plan: -Start amiodarone drip -Once amiodarone drip is completed start amiodarone 200 mg p.o. twice daily -Increase home metoprolol succinate dose from 50 mg daily to 100 mg daily -continue to monitor electolytes keeping potassium >4.0 and Mg >2.0 -Patient is appropriate candidate for cardio ablation therapy. Referral to electrophysiology -TSH pending ? Lipid panel pending ? Continue home medication atorvastatin 40 mg daily Pulm: #Bilateral CAP with possible superimposed #RSV pneumonia Patient has been experiencing shortness of breath with exposure to sick contact 2 days who was positive for RSV. Chest x-ray suspicious for superimposed pneumonia at lung bases, mild heart failure pattern. Plan: -Sputum culture/Gram stain pending -Azithromycin 500 mg daily for 5 days 9 (10/02) -Ceftriaxone 2 g IV daily for 5 days (10/02) -COVID PCR pending -Influenza panel pending -Supportive therapy for RSV pneumonia #Hx KODI #Hx OHS Patient is compliant with CPAP she nightly. -Continue CPAP at bedtime Renal: -No active problems GI: -No active problems Endo: #Hx vue-emvtvib-uybldyued type 2 diabetes Patient does not check blood sugars at home. On admission initial glucose 161. Last A1c 5.5 on 10/2023. Patient takes Metformin 500 mg twice daily, Mounjaro 15 mg for diabetes at home. Plan: -Held home medications -Bedside blood glucose checks AC -Insulin lispro sliding scale -Carb consistent low diet -A1c pending #Diabetic neuropathy -Continue gabapentin 600 mg daily Heme/Onc: No active problems ID: #Severe sepsis 2/2 CAP vs RSV PNA Patient meet SIRS 4/4 criteria with source of infection being pneumonia. Temperature increased to 104.4 while in ED. This alert was called and patient was given 1 L bolus fluids along with 3 L maintenance fluids. Lactic acid peaked 4.6. WBC 14.5 Plan: -Continue with antibiotic treatment for pneumonia as noted above ? Blood cultures pending ? Urine culture pending -Continue to trend lactic acid level Health maintenance: Dispo: ICU for observation and amiodarone drip DVT prophylaxis: Subcu heparin q12hr CODE STATUS: Full code Diet: Low carb consistent, cardiac diet The patient's management plan was discussed with my attending physician Dr. Dr. Marte and seniors Dr. Matthew/Dr. Campbell. Violette Granado, PGY-1 Attending Provider Attestation/Addendum Patient not seen on this date of service. I was notified of the admission by the above resident, Violette Granado MD. patient admitted with atrial fibrillation with RVR along with severe sepsis secondary to community-acquired pneumonia with RSV. Patient started on empiric antibiotics and supportive care for RSV. Patient had a known sick contact. Plan to continue patient on bronchodilator therapy along with noninvasive positive pressure evaluation KODI. I remain available overnight and I will follow-up with the patient tomorrow morning.
[2024-09-27 16:24] LABS: Magnesium 1.7 mg/dL (1.6-2.6)
[2024-09-27 17:04] LABS: Reflex Lactate? Y
--- NOTE | 2024-09-27 17:19 | EKG_ITS ---
[facility] Test Date: 2024-09-28 Pat Name: TONY SAVAGE Department: Room: [facility] Gender: Male Transmission Superintendent: CALLUM : 1965 Requested By: Alber Campbell Order Number: [id number] Reading MD: Alber Campbell Measurements Intervals [place] Rate: 82 P: 32 MO: 176 QRS: -15 QRSD: 114 T: 44 QT: 320 QTc: 375 Interpretive Statements SINUS RHYTHM INFERIOR MYOCARDIAL INFARCTION , PROBABLY OLD WITH POSTERIOR EXTENSION Compared to ECG 09/27/2024 13:46:41 Atrial fibrillation no longer present Right bundle-branch block no longer present Myocardial infarct finding still present /store/S0/[id number]
[2024-09-27] MEDS: cefTRIAXone 2 GM in SODIUM CHLORIDE 0.9% (P) 50 ML IV (17:44)
--- NOTE | 2024-09-27 17:44 | PC.RT ---
pt unable to due sputum induction, remains on bipap comfused preparation center coordinator at bedside with him, noted pt moving his arms trying to take off his gown and mask, family remains at bedside.
[2024-09-27] MEDS: SODIUM CHLORIDE 0.9% 1000 ML 1,000 ML 999 ML IV (17:45)
[2024-09-27] MEDS: PANTOPRAZOLE INJ 40 MG VIAL IVP (17:46)
[2024-09-27] MEDS: ACETAMINOPHEN SUPP 650 MG SUPP PR (18:08)
[2024-09-27] MEDS: INSULIN LISPRO (AdmeLOG) 1 UNIT/0.01 ML UNIT SC (18:08)
[2024-09-27 18:47] LABS: Lactic Acid, 3 HR 1.4 mMol/L (0.4-2.0)
--- NOTE | 2024-09-27 18:51 | PC.NURSE ---
1402 1 amp of lidocaine, pt in svt. 1403 fentanyl and versed given . pt prepped for cardioversion. 1404 pt shocked with 100 joules biphasic and went into sinus tach. 1405 80 mg lasix given ivp. Pt then started on lidocaine drip for approx 11 minutes, Then pt was switched over to amiodarone drip. pt has been sinus tach and confused.
[2024-09-27] MEDS: AZITHROMYCIN INJ 500 MG in SODIUM CHLORIDE 0.9% 250 ML 250 ML 250 MG IV (18:58)
[2024-09-27 18:59] LABS: Reflex Lactate? Y
[2024-09-27] MEDS: SODIUM CHLORIDE 0.9% 1000 ML 1,000 ML 125 ML IV (19:00)
--- NOTE | 2024-09-27 19:15 | PC.NURSE ---
183 Dr. Campo called about clarification orders for fluids. Pt is to complete 1 l ns bolus. Pt then is to get 0.9 ns at 125 ml/hr for a total of 3 liters (x3 bags).
--- NOTE | 2024-09-27 20:56 | PC.RT ---
pt transfered to ICU without any complications pt on 6L oxymask spo2 96-98% once in icu pt remains on 6l oxymask expectorated yellow thin sputum obtain at 2054, sent to lab
[2024-09-27 21:51] LABS: Lactic Acid, 3 HR 1.2 mMol/L (0.4-2.0)
[2024-09-27] MEDS: HEPARIN SOD INJ 5000 UNIT/ML VIAL SC (22:05)
[2024-09-27] MEDS: ATORVASTATIN CALCIUM 20 MG TABLET 40 MG PO (22:06)
--- NOTE | 2024-09-27 22:14 | ESCONSULT_ITS ---
RE: TONY SAVAGE : 1965 DATE OF CONSULTATION: 09/27/2024 CONSULTING PHYSICIANS: Hospitalist and also emergency room physician. REASON FOR CONSULTATION: Evaluation of atrial fibrillation, wide QRS tachycardia. HISTORY OF PRESENT ILLNESS: The patient is a 59-year-old male with a history of hypertension, obesity, sleep apnea syndrome, obstructive sleep apnea, type 2 diabetes mellitus, metabolic syndrome, has a history of multiple episodes of paroxysmal atrial fibrillation in 2022 and 2023, multiple hospitalizations most recently in 10/2023, the patient had a right QRS tachycardia atrial fibrillation RVR with right bundle branch block. The patient was normally seen by Dr. Melchor who follows him closely. Apparently he was given flecainide before, now he has been on Multaq 400 mg b.i.d., which was started recently and also has been on metoprolol 50 mg daily, presented to the hospital with shortness of breath, palpitations, not feeling well. In the emergency room, the patient was found to be in atrial fibrillation, rapid ventricular response with wide QRS secondary to right bundle branch block. The patient was given adenosine for some reason. Adenosine did not help and the patient even faster wide QRS complex tachycardia rate of more than 200 to 220 beats per minute. He was hemodynamically unstable. Synchronized cardioversion was appropriately performed back to sinus rhythm, showed sinus tachycardia, right bundle branch block pattern. The patient has known history of atrial fibrillation, multiple episodes including most recently in 10/2023, many times in 2022. The patient is also having high fever. Initial temperature was 104.4, now down to subsequently 101, definitely elevated temperatures. Chest x- ray report showing suspicion of early pneumonia. The patient is also somewhat hypoxic, now on BiPAP. The patient is now started on amiodarone bolus and drip since the patient has a history of recurrent atrial fibrillation breakthrough with flecainide and Multaq not effective. Most recent echo in 2023 was normal. Ejection fraction was 55% to 60%. PAST MEDICAL HISTORY: Hypertension, diabetes mellitus type 2, obstructive sleep apnea syndrome, paroxysmal atrial fibrillation, several episodes in the last one year. SOCIAL HISTORY: He lives with , does not smoke, drink alcoholic beverages. FAMILY HISTORY: Noncontributory. REVIEW OF SYSTEMS: CARDIOVASCULAR: _ general history of fever and cough. GENITOURINARY: No frequency or dysuria. PHYSICAL EXAMINATION: GENERAL: Well-nourished obese male, alert, awake, and wearing a CPAP. Complaining of shortness of breath, tachycardic. VITAL SIGNS: Heart rate is about 110. Blood pressure is stable at 130/80, respirations 18, temperature normal. NECK: Supple. No JVD. Carotid pulse felt but no bruits. CHEST: Symmetrical. LUNGS: Decreased breath sounds bilateral. HEART: S1 S2. Irregular tachycardia. ABDOMEN: Obese, soft. EXTREMITIES: No edema GENITOURINARY/RECTAL: Not performed. NEUROLOGIC: The patient is alert and oriented x3. No focal deficits. DIAGNOSTIC DATA: EKG showed atrial fibrillation, rapid ventricular response, right bundle branch block pattern. IMPRESSION/ASSESSMENT: Symptomatic atrial fibrillation, rapid ventricular response with wide QRS tachycardia secondary to aberrant conduction. There does not appear to be ventricular tachycardia. RECOMMENDATIONS: Amiodarone will be continued IV bolus three bags. Subsequently, we will change it to oral amiodarone 200 mg twice daily. Recommend continuing metoprolol 50 mg, possibly increase to 100 mg if the patient can tolerate. Treatment of pneumonia. The patient has fever and possibly infiltrate, pneumonia to be treated after the culture is obtained. Antibiotics should be started. The patient started on azithromycin and ceftriaxone. There was also element of pulmonary congestion. A dose of furosemide was given. The patient also has a history of diabetes mellitus and glucose monitoring. I would like to thank for referring this patient for cardiovascular evaluation, would be glad to follow the patient. Spent more than one hour of critical care time in the emergency room monitoring and managing the patient along with resident team. DT: 20:55:13 TT: 22:03:00 Ref: [id number] - TID: [id number] MTDD
[2024-09-27] MEDS: AMIODARONE 360 MG IVPB 360 MG/200 ML BAG 16.667 MG IV (22:44)
[2024-09-27 22:50] LABS: Collection Type, Urine Clean Catch; WBC,Urine 0 /hpf (0-5)
[2024-09-27 23:00] LABS: Bilirubin,Urine Negative (Negative); Blood,Urine Trace (Negative); Clarity,Urine Clear (Clear/Hazy); Color,Urine Lt-Yellow (Lt Yel-Yel); Glucose, Urine Negative (Negative); Ketones,Urine Negative (Negative); Leukocyte Esterase,Urine Negative (Negative); Nitrite,Urine Negative (Negative); Protein,Urine Negative (Neg - Trace); RBC,Urine < 1 /hpf (0-3); Specific Gravity,Urine 1.016 (1.001-1.035); Squamous Epithelial Cell,Urine < 1 /hpf (0-5); Urobilinogen,Urine Negative mg/dL (0.0-1.0)
[2024-09-27] MEDS: GABAPENTIN 100 MG CAPSULE 400 MG PO (23:40)
[2024-09-27] MEDS: ACETAMINOPHEN 325 MG TABLET 650 MG PO (23:53)
[2024-09-28] VITALS (27 sets, daily range): BP systolic 70–133; BP diastolic 51–83; PULSE 70–98; RESP 10–28; TEMP 36.2–37.8; O2SAT 97–100
[2024-09-28] MEDS: SODIUM CHLORIDE 0.9% 1000 ML 1,000 ML 125 ML IV ×2 (03:58→08:44)
[2024-09-28 06:34] LABS: Glucose Estimated Average 103 mg/dL (80-131); Hemoglobin A1C 5.2 % Hgb (4.8-6.0)
[2024-09-28 06:46] LABS: Basophils # (Auto) 0.1 Thou/mm3 (0.0-0.2); Basophils % (Auto) 0 % (0-2.5); Eosinophils # (Auto) 0.1 Thou/mm3 (0.0-0.5); Eosinophils % (Auto) 1 % (0-10); Hematocrit 39.8 % (41.0-53.0); Hemoglobin 13.6 g/dL (13.5-16.0); Immature Granulocytes % (Auto) 0 % (0-0); Immature Granulocytes Auto 0.06 Thou/mm3 (0.00-0.00); Lymphocytes # (Auto) 1.4 Thou/mm3 (1.0-4.8); Lymphocytes % (Auto) 9 % (10-50); Mean Corpuscular HGB Conc 34.2 g/dl (31.0-37.0); Mean Corpuscular Hemoglobin 27.3 pg (25.0-35.0); Mean Corpuscular Volume 80 fL (80-100); Monocytes # (Auto) 1.3 Thou/mm3 (0.0-0.8); Monocytes % (Auto) 8 % (0-12); Neutrophils # (Auto) 13.2 Thou/mm3 (1.8-7.7); Neutrophils % (Auto) 82 % (37-80); Nucleated Red Blood Cell % 0 /100 WBC (0); Platelet Count 187 Thou/mm3 (140-440); Red Blood Count 4.99 Miln/mm3 (4.50-5.90); White Blood Count 16.1 Thou/mm3 (3.8-10.6)
[2024-09-28 07:14] LABS: Albumin, Serum 4.1 gm/dL (3.4-4.8); Albumin/Globulin Ratio 1.5 (1.2-2.2); Alkaline Phosphatase 60 U/L (46-116); Anion Gap 9 (7-16); Aspartate Amino Transferase 16 U/L (0-34); BUN/Creatinine Ratio 19 Ratio (12-20); Bilirubin,Total 2.5 mg/dL (0.3-1.2); Blood Urea Nitrogen 15 mg/dL (9-23); Calcium 8.5 mg/dL (8.3-10.6); Calcium (Corrected) 8.5 mg/dL (8.5-10.1); Carbon Dioxide 24.3 mMol/L (20.0-31.0); Cardiac Risk Estimate 2.5 RATIO (4.0-6.7); Chloride 105 mMol/L (98-107); Cholesterol 94 mg/dL (132-200); Creatinine (Component) 0.8 mg/dL (0.6-1.3); Estimated Creatinine Clearance 131.5 mL/min (>60); Globulin 2.7 gm/dL (2.3-3.5); Glucose 117 mg/dL (74-106); HDL Cholesterol 37 mg/dL (40-60); LDL Cholesterol,Calculated 41 mg/dL (0-130); Magnesium 1.7 mg/dL (1.6-2.6); Osmolality,Calculated 277 (275-295); Phosphorous 2.7 mg/dL (2.4-5.1); Potassium 3.3 mMol/L (3.4-5.1); Sodium 138 mMol/L (136-145); Thyroid Stimulating Hormone 1.34 uIU/mL (0.55-4.78); Total Protein 6.8 gm/dL (5.7-8.2); Triglycerides 79 mg/dL (30-150); eGFR > 60 See Note
[2024-09-28 07:50] LABS: Alanine Aminotransferase 12 U/L (10-49)
[2024-09-28] MEDS: cefTRIAXone 2 GM in SODIUM CHLORIDE 0.9% (P) 50 ML IV (08:42)
[2024-09-28] MEDS: METOPROLOL SUCCINATE XL 25 MG TABCR 100 MG PO (08:43)
[2024-09-28] MEDS: HEPARIN SOD INJ 5000 UNIT/ML VIAL SC ×2 (08:43→20:15)
[2024-09-28] MEDS: PANTOPRAZOLE INJ 40 MG VIAL IVP (08:43)
[2024-09-28] MEDS: POTASSIUM CHL 10 mEq IVPB 10 MEQ/100 ML BAG 100 MEQ IV ×4 (08:44→11:55)
[2024-09-28] MEDS: AZITHROMYCIN INJ 500 MG in SODIUM CHLORIDE 0.9% 250 ML 250 ML 250 MG IV (09:36)
--- NOTE | 2024-09-28 10:38 | PC.CC ---
Rounding note: pt Charles Chavez admitted to ICU for Afib RVR with RBB, bilateral CAP/RSV PNA, pt remains in ICU.
[2024-09-28] MEDS: BUDESONIDE RT 0.5 MG/2 ML NEBU INH ×2 (11:30→20:34)
[2024-09-28] MEDS: AMIODARONE 360 MG IVPB 360 MG/200 ML BAG 16.667 MG IV (11:54)
[2024-09-28] MEDS: ACETAMINOPHEN 325 MG TABLET 650 MG PO (12:02)
--- NOTE | 2024-09-28 12:04 | EVENTNT_ITS ---
Documentation for date of: 09/28/24 Event Note Event Note: Mr. Chavez is a 59 year old male with history of hyperlipidemia and admissions for recurrent Afib with RvR episodes, H2DM, and KODI/OHS on CPAP who presented to the ED on 08/27 with shortness of breath following recent exposure to RSV (RSV positive), found to be in Atrial fibrillation with RvR with heart rate 206. In ED, patient was given adenosine x1 however converted to ventricular fibrillation and was then given lidocaine, subsequently underwent cardioversion resulting in sinus tachycardia. Crossband Layer Dr. Lee was consulted in ED, advised starting IV amiodarone bolus followed by amiodarone drip to transition to PO amiodarone 200mg BID and metroprolol 100mg daily if patient is able to tolerate otherwise metoprolol 50mg daily. Patient was admitted to ICU for close monitoring s/p cardioversion. Hospitalist team will resume care 09/29/24.
[2024-09-28] MEDS: HYDROcodone/APAP 5/325 TABLET 1 TAB PO ×2 (14:09→20:15)
--- NOTE | 2024-09-28 15:00 | PC.NURSE ---
Rosa M TENA from Telemetry received hand off report. Patient is aware of transfer to telemetry, all belongings gathered and sent with patient. Pt trasnferred via bed with oxygen and compliance monitor in place.
--- NOTE | 2024-09-28 15:08 | ESPR_ITS ---
RE: TONY SAVAGE : 1965 DATE OF SERVICE: 09/28/2024 S: The patient is a 59-year-old male admitted to the hospital with atrial fibrillation, rapid ventricular response, symptomatic, wide QRS tachycardia, requiring cardioversion, started on amiodarone, now back maintaining sinus rhythm, received amiodarone and is also on antibiotic for possible infection as he has had high fever on admission. O: General: alert awake have any chest pain or shortness of breath. Vital Signs: Blood pressure 133/53, pulse 86, respirations 22, temperature normal. Neck: Supple. No JVD. Lungs: Decreased breath sounds. No rales or rhonchi. Heart: S1, S2 regular. No gallop. Abdomen: Thin and soft. Extremities: No edema. Diagnostic Data: EKG showed sinus rhythm, small Q-wave inferior lead, nonspecific ST-changes across the . A: 1. Paroxysmal atrial fibrillation, rapid ventricular response requiring cardioversion, wide QRS complex tachycardia. 2. Right bundle branch block during atrial fibrillation. 3. High fever and sepsis, receiving antibiotics. 4. Obesity, hypoventilation, and sleep apnea syndrome. P: Continue amiodarone IV followed by oral change it to 200 mg b.i.d. Continue beta-neo, metoprolol succinate 100 mg daily. DT: 11:24:45 TT: 14:59:00 Ref: [id number] - TID: [id number] MTDD
--- NOTE | 2024-09-28 19:03 | PD.RESPRO ---
Documentation for date of: 09/28/24 Subjective Subjective Interval history: Patient was seen and examined at bedside in ICU. He reports ongoing full body aches and was given Tylenol and [place] with minimal response. His heart rate is irregular and stays in 80s. He continues to be on amiodarone drip per cardiology recommendation and was able to tolerate metoprolol 100 mg daily. His blood pressure remained stable since admission to ICU. He was on BiPAP until today morning, tolerated well and was able to saturate well without BiPAP. Potassium was repleted today. Patient will be downgraded to the medical floor for continuation of care. Exam Vital Signs Temp Pulse Resp BP Pulse Ox O2 Del Method O2 Flow Rate 97.4 F 83 19 106/76 99 Nasal Cannula 4 09/28/24 12:00 09/28/24 16:00 09/28/24 12:00 09/28/24 12:00 09/28/24 12:00 09/28/24 12:00 09/28/24 12:00 FiO2 40 09/27/24 20:12 Narrative Exam Gen: Well-developed and well-nourished obese male. HEENT: NCAT, PERRLA, EOMI, MMM, anicteric conjunctivae. CVS: normal S1 and S2. RRR. No M/R/G. Resp: Decreased breath sounds B/L. No rhonchi, rales, crackles or wheezing. Abd: soft, obese, non-tender, non-distended. BS+ in all 4 quadrants. MSK: Good ROM in BUE & BLE. No rash. Nonpitting edema BLE. Neuro: CN II-XII grossly intact. Strength 5/5 in BUE & BLE. Alert and oriented x3. Psych: appropriate mood and affect. Objective Labs 09/30/24 04:52 09/30/24 04:52 Labs: Laboratory Results - last 24 hr 09/27/24 09/27/24 09/28/24 21:45 22:18 05:45 WBC 16.1 H RBC 4.99 Hgb 13.6 Hct 39.8 L MCV 80 MCH 27.3 MCHC 34.2 RDW Std Deviation 44.0 H Plt Count 187 D Neut % (Auto) 82 H Lymph % (Auto) 9 L [place] % (Auto) 8 Eos % (Auto) 1 Baso % (Auto) 0 Neut # (Auto) 13.2 H Lymph # (Auto) 1.4 [place] # (Auto) 1.3 H Eos # (Auto) 0.1 Baso # (Auto) 0.1 Immature Gran # (Auto) 0.06 H Absolute Nucleated RBC 0.00 Immature Gran % 0 Nucleated RBC % 0 Sodium 138 Potassium 3.3 L D Chloride 105 Carbon Dioxide 24.3 Anion Gap 9 BUN 15 Creatinine 0.8 Estim Creat Clear Calc 131.5 eGFR > 60 BUN/Creatinine Ratio 19 [address]ucose [address] Glu mg/dL 103 Hemoglobin A1c 5.2 Calculated Osmolality 277 Lactic Acid 1.2 Calcium 8.5 Corrected Calcium 8.5 Phosphorus 2.7 Magnesium 1.7 Total Bilirubin 2.5 H AST 16 ALT 12 Alkaline Phosphatase 60 D Total Protein 6.8 Albumin 4.1 D Globulin 2.7 Albumin/Globulin Ratio 1.5 Triglycerides 79 Cholesterol 94 L LDL Cholesterol, Calc 41 HDL Cholesterol 37 L Cholesterol/HDL Ratio 2.5 L TSH 1.34 Ur Collection Type Clean Catch Urine Color Lt-Yellow Urine Clarity Clear Urine pH 5.0 Ur Specific [place] 1.016 Urine Protein Negative Urine Glucose (UA) Negative Urine Ketones Negative Urine Blood Trace Urine Nitrite Negative Urine Bilirubin Negative Urine Urobilinogen (Auto) Negative Ur Leukocyte Esterase Negative Urine RBC < 1 Urine WBC 0 Ur Squamous Epith Cells < 1 Urine Bacteria None ABG Interpretation ABG results: 09/27/24 14:32 ABG pH 7.40 ABG pCO2 40 ABG pO2 92 ABG HCO3 25 ABG O2 Saturation 98 ABG Base Excess 0 Quality Measures Quality Measures none Assessment & Plan Assessment Current Active Medications: Generic Name Dose Route Start Last Admin Trade Name Milady PRN Reason Stop Dose Admin Acetaminophen 650 mg 09/28/24 11:55 09/28/24 12:02 Acetaminophen 325 Mg Tablet PO 10/27/24 15:49 650 mg Q6H PRN Administration Fever >100.3 or pain (1-3) Atorvastatin Calcium 40 mg 09/27/24 21:00 09/27/24 22:06 Atorvastatin Calcium 20 Mg Tablet PO 10/27/24 20:59 40 mg HS RAÚL Administration Budesonide 0.5 mg 09/28/24 10:40 09/28/24 11:30 Budesonide Rt 0.5 Mg/2 Ml Nebu INH 10/28/24 10:39 0.5 mg BIDRT RAÚL Administration Dextrose 25 ml 09/27/24 15:57 Dextrose 50%-Water Inj 50 Ml Syringe IV 10/27/24 15:56 Q15MIN PRN BG 50-70 responsive npo pt Dextrose 50 ml 09/27/24 15:57 Dextrose 50%-Water Inj 50 Ml Syringe IV 10/27/24 15:56 Q15MIN PRN BG <50 OR BG <70 & pt unresponsive Glucagon 1 mg 09/27/24 15:57 Glucagon Inj 1 Mg Vial IM Q15MIN PRN BG <70, and no IV access Heparin Sodium (Porcine) 5,000 unit 09/27/24 21:00 09/28/24 08:43 Heparin Sod Inj 5000 Unit/Ml Vial SC 10/11/24 20:59 5,000 unit Q12HR RAÚL Administration Amiodarone HCl/Dextrose 360 mg in 200 mls @ 16.667 mls/hr 09/27/24 20:45 09/28/24 11:54 Nexterone Ivpb IV 09/28/24 20:44 16.667 mls/hr .Q12H RAÚL Administration Ceftriaxone Sodium 2 gm/ 50 mls @ 100 mls/hr 09/27/24 16:15 09/28/24 08:42 Sodium Chloride IV 10/02/24 16:14 100 mls/hr QDAY RAÚL Administration Azithromycin 500 mg/ Sodium 250 mls @ 250 mls/hr 09/27/24 16:09 09/28/24 09:36 Chloride IV 10/02/24 16:08 250 mls/hr QDAY RAÚL Administration Insulin Human Lispro 0 unit 09/27/24 17:00 09/28/24 16:24 Insulin Lispro (Admelog) 1 Unit/0.01 Ml Unit SC 10/27/24 16:59 Not Given AC RAÚL Protocol Metoprolol Succinate 100 mg 09/27/24 15:45 09/28/24 08:43 Metoprolol Succinate Xl 25 Mg Tabcr PO 10/27/24 15:44 100 mg QDAY RAÚL Administration Ondansetron HCl 4 mg 09/27/24 15:50 Ondansetron Inj 2 Mg/Ml Inj 2 Ml IV 10/27/24 15:49 Q6H PRN NAUSEA OR VOMITING Protocol Pantoprazole Sodium 40 mg 09/27/24 16:00 09/28/24 08:43 Pantoprazole Inj 40 Mg Vial IVP 10/27/24 15:59 40 mg QDAY RAÚL Administration Sennosides 1 tab 09/27/24 15:50 Senna Tablet PO 10/27/24 15:49 QDAY PRN constipation Protocol Plan Charles Chavez is a 59 yr male with PMH of HLD, frequent admissions due to recurrent episodes of A-fib RVR with RBBB, qyc-ueasjed-xxuahonmj type 2 diabetes, morbid obesity, KODI/OHS on CPAP who presented to ED after experiencing worsening SOB and chest pain. 12 lead EKG showed AFib RVR with RBBB. Patient received one round of electrocardio conversion in and 6 mg adenosine x 1. Patient admitted to ICU for observation s/p cardioversion and treatment for severe sepsis secondary to pneumonia. Neuro: -no active problems CVS: #Afib RVR with RBBB In ED, patient received 1 round electrocardio conversion and 6 mg adenosine x 1. Troponins were negative. Unclear at this time if patient was able to follow-up with EP for possible ablation therapy due to recurrent episodes of chest pain and shortness of breath due to the underlying dysrhythmia. Per , patient is to see Dr. Ivey this month. Dr. Lee was consulted and patient was admitted to ICU for observation and treatment of A-fib with RBBB. CHADSVASC score 1 (hx DM) 0.6% stroke risk per year. Plan: -continue amiodarone drip. -Once amiodarone drip is completed start amiodarone 200 mg p.o. twice daily. -Increase home metoprolol succinate dose from 50 mg daily to 100 mg daily. -continue to monitor electolytes keeping potassium >4.0 and Mg >2.0. -Patient is appropriate candidate for cardio ablation therapy. Referral to electrophysiology. ? Continue home medication atorvastatin 40 mg daily. Pulm: #Bilateral CAP with possible superimposed. #RSV pneumonia. Patient has been experiencing shortness of breath with exposure to sick contact 2 days who was positive for RSV. Chest x-ray suspicious for superimposed pneumonia at lung bases, mild heart failure pattern. Plan: -Sputum culture/Gram stain pending. -Azithromycin 500 mg daily for 5 days 9 (10/02). -Ceftriaxone 2 g IV daily for 5 days (10/02). -Supportive therapy for RSV pneumonia. #Hx KODI. #Hx OHS. Patient is compliant with CPAP she nightly. Plan: -Continue CPAP at bedtime. Renal: -No active problems. GI: #20mm liver lesion. Plan: -follow up outpatient. Endo: #Hx ouq-melaqvl-lmupngyyc type 2 diabetes. Patient does not check blood sugars at home. On admission initial glucose 161. Last A1c 5.5 on 10/2023. Patient takes Metformin 500 mg twice daily, Mounjaro 15 mg for diabetes at home. Plan: -Held home medications. -Bedside blood glucose checks AC. -Insulin lispro sliding scale. -Carb consistent low diet. #Diabetic neuropathy. -Continue gabapentin 600 mg daily. Heme/Onc: No active problems. ID: #Severe sepsis 2/2 CAP vs RSV PNA. Patient meet SIRS 4/4 criteria with source of infection being pneumonia. Temperature increased to 104.4 while in ED. This alert was called and patient was given 1 L bolus fluids along with 3 L maintenance fluids. Lactic acid peaked 4.6. WBC 14.5. Plan: -Continue with antibiotic treatment for pneumonia as noted above. ? Blood cultures pending. ? Urine culture pending. Health maintenance: Dispo: ICU for observation and amiodarone drip s/p electrical cardioversion. DVT prophylaxis: Subcu heparin q12hr CODE STATUS: Full code Diet: Low carb consistent, cardiac diet Lines: peripheral. Plan of care discussed with attending . Alber Campbell MD, PGY 2. Disclaimer: This note was dictated by speech recognition. Minor errors in boat crew deck hand may be present due to voice recognition software. Attending Provider Attestation/Addendum Patient seen and examined with above resident, Alber Campbell MD. I agree with the findings, assessment, and plan of care as documented except for any differences below. Patient remains on empiric antibiotics for community-acquired pneumonia requiring noninvasive positive pressure ventilation. Patient significantly improved along with resolution of atrial fibrillation with RVR after administration of adenosine failed requiring electrical cardioversion with sedation. Patient recovered on noninvasive positive pressure ventilation in the setting of his underlying infection until this morning it was discontinued as the patient is back to being awake and alert/oriented. Continue empiric antibiotics and supportive care for RSV. Notably recent exposure to family member who from RSV. Patient and updated at bedside on plan of care including plan to transition to telemetry chow for ongoing management prior to discharge in coming days. Total critical care time: I personally spent 30 minutes for review of physiologic parameters, directing plan of care throughout the day, coordination of care with other teams, and counseling patient and his at bedside. This is exclusive of time spent teaching housestaff or performing any separate billable procedures. Patient continues require critical care services for acute respiratory failure and atrial fibrillation with RVR status post electrical cardioversion. Patient remains at significant risk for morbidity and mortality warranting ongoing management and care only available in the intensive care unit.
[2024-09-28] MEDS: ATORVASTATIN CALCIUM 20 MG TABLET 40 MG PO (20:15)
[2024-09-28] MEDS: MELATONIN 3 MG TABLET PO (22:55)
[2024-09-29] VITALS (14 sets, daily range): BP systolic 99–139; BP diastolic 73–94; PULSE 79–136; RESP 12–24; TEMP 35.9–36.1; O2SAT 96–100; BMI 45.4
[2024-09-29] MEDS: ONDANSETRON INJ 2 MG/ML INJ 2 ML 4 MG IV (00:13)
[2024-09-29 05:52] LABS: Basophils % (Auto) 0 % (0-2.5); Eosinophils # (Auto) 0.2 Thou/mm3 (0.0-0.5); Eosinophils % (Auto) 2 % (0-10); Hematocrit 41.4 % (41.0-53.0); Hemoglobin 14.1 g/dL (13.5-16.0); Immature Granulocytes % (Auto) 1 % (0-0); Immature Granulocytes Auto 0.07 Thou/mm3 (0.00-0.00); Lymphocytes # (Auto) 1.5 Thou/mm3 (1.0-4.8); Lymphocytes % (Auto) 14 % (10-50); Mean Corpuscular HGB Conc 34.1 g/dl (31.0-37.0); Mean Corpuscular Hemoglobin 27.1 pg (25.0-35.0); Mean Corpuscular Volume 80 fL (80-100); Monocytes # (Auto) 0.8 Thou/mm3 (0.0-0.8); Monocytes % (Auto) 8 % (0-12); Neutrophils # (Auto) 8.1 Thou/mm3 (1.8-7.7); Neutrophils % (Auto) 76 % (37-80); Nucleated Red Blood Cell % 0 /100 WBC (0); Platelet Count 183 Thou/mm3 (140-440); RDW Standard Deviation 42.8 fL (35.1-43.9); Red Blood Count 5.21 Miln/mm3 (4.50-5.90); White Blood Count 10.7 Thou/mm3 (3.8-10.6)
[2024-09-29 06:23] LABS: Alanine Aminotransferase 13 U/L (10-49); Albumin, Serum 4.1 gm/dL (3.4-4.8); Albumin/Globulin Ratio 1.3 (1.2-2.2); Alkaline Phosphatase 64 U/L (46-116); Anion Gap 8 (7-16); Aspartate Amino Transferase 18 U/L (0-34); BUN/Creatinine Ratio 13 Ratio (12-20); Bilirubin,Total 1.9 mg/dL (0.3-1.2); Blood Urea Nitrogen 10 mg/dL (9-23); Calcium 8.8 mg/dL (8.3-10.6); Calcium (Corrected) 8.8 mg/dL (8.5-10.1); Carbon Dioxide 26.8 mMol/L (20.0-31.0); Chloride 104 mMol/L (98-107); Creatinine (Component) 0.8 mg/dL (0.6-1.3); Estimated Creatinine Clearance 134.7 mL/min (>60); Globulin 3.2 gm/dL (2.3-3.5); Glucose 111 mg/dL (74-106); Magnesium 1.9 mg/dL (1.6-2.6); Osmolality,Calculated 277 (275-295); Phosphorous 2.7 mg/dL (2.4-5.1); Potassium 3.8 mMol/L (3.4-5.1); Sodium 139 mMol/L (136-145); Total Protein 7.3 gm/dL (5.7-8.2); eGFR > 60 See Note
[2024-09-29] MEDS: BUDESONIDE RT 0.5 MG/2 ML NEBU INH ×2 (07:05→18:26)
--- NOTE | 2024-09-29 08:56 | ESPR_ITS ---
<Statement entered by Keyur Ivey MD - 09/29/24 19:06> I have personally seen and examined the patient separately on the above date of service and discussed the plan of care with the resident. I reviewed the resident Dr. Geiger consultation progress note and agree with the resident findings and plan in the note above and have also edited the documentation to reflect my findings and plan. Patient well-known to me from the clinic. Patient was admitted Lasted to go to the hospital for A-fib with RVR in the setting of acute RSV infection. Patient apparently did receive adenosine and patient did have possible one-to-one conduction with wide-complex tachycardia requiring urgent cardioversion. Patient was monitored in the ICU for a day and was placed on amiodarone drip which she converted to normal sinus rhythm and now placed on amiodarone 200 mg twice daily. At home patient is on flecainide 100 mg twice daily home dose for the last couple of years. His previous dose was flecainide 50 mg twice daily and he has been doing well for the last 8 months. Patient was given the option of ablation for the atrial fibrillation but he did not want to pursue it at that point of time and want to continue to do the flecainide 100 mg twice daily along with the metoprolol XL 50 mg once daily at home. Patient was also recommended to lose weight prior to any ablation or procedures and patient is in the process of losing weight and was recommended to lose a total of 100 pounds. Patient also recommended to continue to use a CPAP machine at home for his obstructive sleep apnea. Inciting event for the A-fib with RVR is the acute RSV infection and treated aggressively along with any URI or infection. He did convert to normal sinus rhythm with amiodarone drip but now reverted back to atrial fibrillation with RVR this morning around 10 AM and has been maintaining the same and patient is already admitted for XL 100 mg once daily and amiodarone 200 mg twice daily orally. Patient's systolic blood pressure around 110 mmHg and cannot increase the metoprolol XL anymore. Will continue the same dose of the oral medication but restart the amiodarone bolus as well as drip for 1 more day as it would not need higher doses for the amiodarone to reach the steady state. Also recommend to replace for grams of magnesium sulfate IV along with 40 meq potassium chloride oral. Keep potassium greater than 4 and magnesium greater than 2 at all times. Continue telemetry Patient was on flecainide at home as a previous echocardiogram in October 2023 showed normal LV function without any major structural valvular abnormalities. Will recommend a repeat echocardiogram the present point of time and reevaluate the EF and for structural valvular abnormalities. Discussed with the patient that we can refer him as outpatient for his atrial fibrillation ablation if required as it is not ideal when he is actively infected to do an ablation and also to continue to discuss about further direct therapy given the significant side effects of amiodarone and it cannot be a long-term option. Keyur Ivey M.D. Interventional Cardiology Documentation for date of: 09/29/24 Subjective Subjective Interval history: Pt examined at bedside today. Overnight events seen on telemetry include some PVCs. Pt reports that he did not sleep well last night and was not able to use his CPAP machine. Says that his chest pain has been intermittent but manageable. He also says that his shortness of breath has been manageable as well. Says that he got exposed to RSV from his family. No other complaints at this time. Exam Vital Signs Temp Pulse Resp BP Pulse Ox O2 Del Method O2 Flow Rate 97.0 F 81 24 H 132/81 H 100 Humidified Nasal Cannula 4 09/29/24 04:00 09/29/24 07:06 09/29/24 07:06 09/29/24 04:00 09/29/24 07:06 09/29/24 04:00 09/29/24 07:06 FiO2 40 09/27/24 20:12 Narrative Exam General: AAOx3, NAD, morbidly obese male, lethargic HEENT: Moist mucous membranes, conjunctiva clear, EOMI, PERRLA, Cardiovascular: S1, S2, radial pulses +2 bilat, Irregularly irregular rhythm Pulmonary: CTAB bilat no cough, no wheezing GI: No tenderness to light or deep palpitation, no guarding, rigidity, rebound tenderness or distension Extremities: trace edema in lower extremities bilaterally, dorsalis pedis pulses +2 bilaterally Neuro: AAOx3, no focal motor or sensory deficits in the UE or LE bilat Psych: Good judgement, thought and behavior Cooperative. Objective Labs 09/29/24 05:26 09/29/24 05:26 Labs: Laboratory Results - last 24 hr 09/29/24 05:26 WBC 10.7 H D RBC 5.21 Hgb 14.1 Hct 41.4 MCV 80 MCH 27.1 MCHC 34.1 RDW Std Deviation 42.8 Plt Count 183 Neut % (Auto) 76 Lymph % (Auto) 14 [place] % (Auto) 8 Eos % (Auto) 2 Baso % (Auto) 0 Neut # (Auto) 8.1 H Lymph # (Auto) 1.5 [place] # (Auto) 0.8 Eos # (Auto) 0.2 Baso # (Auto) 0.0 Immature Gran # (Auto) 0.07 H Absolute Nucleated RBC 0.00 Immature Gran % 1 H Nucleated RBC % 0 Sodium 139 Potassium 3.8 D Chloride 104 Carbon Dioxide 26.8 Anion Gap 8 BUN 10 Creatinine 0.8 Estim Creat Clear Calc 134.7 eGFR > 60 BUN/Creatinine Ratio 13 Glucose 111 H Calculated Osmolality 277 Calcium 8.8 Corrected Calcium 8.8 Phosphorus 2.7 Magnesium 1.9 Total Bilirubin 1.9 H D AST 18 ALT 13 Alkaline Phosphatase 64 Total Protein 7.3 Albumin 4.1 Globulin 3.2 Albumin/Globulin Ratio 1.3 ABG Interpretation ABG results: 09/27/24 14:32 ABG pH 7.40 ABG pCO2 40 ABG pO2 92 ABG HCO3 25 ABG O2 Saturation 98 ABG Base Excess 0 Quality Measures Quality Measures none Assessment & Plan Assessment Current Active Medications: Generic Name Dose Route Start Last Admin Trade Name Sergeyq PRN Reason Stop Dose Admin Acetaminophen 650 mg 09/28/24 11:55 09/28/24 12:02 Acetaminophen 325 Mg Tablet PO 10/27/24 15:49 650 mg Q6H PRN Administration Fever >100.3 or pain (1-3) Hydrocodone Bitart/Acetaminophen 1 tab 09/28/24 19:48 09/28/24 20:15 Hydrocodone/Apap 5/325 Tablet PO 10/03/24 19:47 1 tab Q6HR PRN Administration PAIN SCALE 4-10(Mod-Sev Atorvastatin Calcium 40 mg 09/27/24 21:00 09/28/24 20:15 Atorvastatin Calcium 20 Mg Tablet PO 10/27/24 20:59 40 mg HS RAÚL Administration Azithromycin 500 mg 09/29/24 09:00 Azithromycin 250 Mg Tablet PO 10/02/24 08:59 QDAY RAÚL Protocol Budesonide 0.5 mg 09/28/24 10:40 09/29/24 07:05 Budesonide Rt 0.5 Mg/2 Ml Nebu INH 10/28/24 10:39 0.5 mg BIDRT RAÚL Administration Dextrose 25 ml 09/27/24 15:57 Dextrose 50%-Water Inj 50 Ml Syringe IV 10/27/24 15:56 Q15MIN PRN BG 50-70 responsive npo pt Dextrose 50 ml 09/27/24 15:57 Dextrose 50%-Water Inj 50 Ml Syringe IV 10/27/24 15:56 Q15MIN PRN BG <50 OR BG <70 & pt unresponsive Glucagon 1 mg 09/27/24 15:57 Glucagon Inj 1 Mg Vial IM Q15MIN PRN BG <70, and no IV access Heparin Sodium (Porcine) 5,000 unit 09/27/24 21:00 09/28/24 20:15 Heparin Sod Inj 5000 Unit/Ml Vial SC 10/11/24 20:59 5,000 unit Q12HR RAÚL Administration Ceftriaxone Sodium 2 gm/ 50 mls @ 100 mls/hr 09/27/24 16:15 09/28/24 08:42 Sodium Chloride IV 10/02/24 16:14 100 mls/hr QDAY RAÚL Administration Insulin Human Lispro 0 unit 09/27/24 17:00 09/29/24 07:34 Insulin Lispro (Admelog) 1 Unit/0.01 Ml Unit SC 10/27/24 16:59 Not Given AC RAÚL Protocol Metoprolol Succinate 100 mg 09/27/24 15:45 09/28/24 08:43 Metoprolol Succinate Xl 25 Mg Tabcr PO 10/27/24 15:44 100 mg QDAY RAÚL Administration Ondansetron HCl 4 mg 09/27/24 15:50 09/29/24 00:13 Ondansetron Inj 2 Mg/Ml Inj 2 Ml IV 10/27/24 15:49 4 mg Q6H PRN Administration NAUSEA OR VOMITING Protocol Pantoprazole Sodium 40 mg 09/27/24 16:00 09/28/24 08:43 Pantoprazole Inj 40 Mg Vial IVP 10/27/24 15:59 40 mg QDAY RAÚL Administration Sennosides 1 tab 09/27/24 15:50 Senna Tablet PO 10/27/24 15:49 QDAY PRN constipation Protocol Plan Cristian Chavez is a 59 yr male with PMH of HLD, frequent admissions due to recurrent episodes of A-fib RVR with RBBB, xsx-qchfgcd-rvelqsnki type 2 diabetes, morbid obesity, KODI/OHS on CPAP who presented to ED after experiencing worsening SOB and chest pain. 12 lead EKG showed AFib RVR with RBBB. Patient received one round of electrocardio conversion in and 6 mg adenosine x 1. Patient admitted to ICU for observation s/p cardioversion and treatment for severe sepsis secondary to pneumonia. #Afib RVR with RBBB Received 6 mg of Adenosine, in ED, then went into wide QRS tachycardia and was then cardioversion. Pt was then admitted to ICU for further management CHADSVASC score 1 (hx DM) 0.6% stroke risk per year. Finished Amio Drip, currently on Amio 200 Pt most likely went into Afib with RVR as pt is experiencing increased stress with RSV pneumonia Was on flecainide 100 mg BID at home, however, would like to resume this at some point rather continuing Amio As pt's HR elevated to 120s, concern for decompensation, will restart amio drip and consider increasing metoprolol 100 mg BID tomorrow Plan: -Amio 200 po BID -On metoprolol succinate 100 mg -Amio bolus + Drip to be started by primary team -Eliquis 5 mg BID started by primary team -Continue to monitor electrolytes keeping potassium >4.0 and Mg >2.0 ?Treat underlying infection which is what put patient in A-fib most likely #Hx atw-anmqpri-dmfhgpvwv type 2 diabetes Last A1c of 5.2 in September 2024 Plan: Management by primary hospitalist team #Hx of KODI #Hx of OHS Pt did not resume CPAP last night Maintaining adequate oxygen saturations will allow for patient to be stable and low risk for going into A-fib ABG today showed pH of 7.4 and pCO2 of 40 Currently on 2 L nasal cannula Plan: ?Continue with CPAP at night #Bilateral CAP with possible superimposed. #RSV pneumonia. #20mm liver lesion #Diabetic neuropathy #Severe sepsis 2/2 CAP vs RSV PNA #History of morbid obesity Above managed by primary hospitalist team Patient seen and care discussed with my attending physician, Dr. Uche Mcbride, PGY-1
--- NOTE | 2024-09-29 09:08 | PC.SS ---
Follow up note: Pt is an ICU down grade. Pt is on IV antibiotic.
[2024-09-29] MEDS: cefTRIAXone 2 GM in SODIUM CHLORIDE 0.9% (P) 50 ML IV (09:57)
[2024-09-29] MEDS: HEPARIN SOD INJ 5000 UNIT/ML VIAL SC (09:58)
[2024-09-29] MEDS: PANTOPRAZOLE INJ 40 MG VIAL IVP (09:58)
[2024-09-29] MEDS: AZITHROMYCIN 250 MG TABLET 500 MG PO (09:58)
[2024-09-29] MEDS: METOPROLOL SUCCINATE XL 25 MG TABCR 100 MG PO (09:59)
[2024-09-29] MEDS: AMIODARONE HCL 200 MG TABLET PO (14:09)
--- NOTE | 2024-09-29 14:39 | PC.NURSE ---
Dr Farr notified that patient had converted back to afib and heart rate increased to 155. Patient appears assymptomatic, and hr is maintaining in mid 120s. PO amiodarone administered.
--- NOTE | 2024-09-29 15:28 | ECHO_ITS ---
Transthoracic Echo Report Ht (in): 69 Wt (lb): 307 Exam Location: [facility] Status: Inpatient [place] Man: Bren Sparks Indications: Procedure Performed: BP: 116 / 82 HR: 70 Rhythm: Sinus Technical Quality: Technically difficult study MEASUREMENTS (Male / Female) Normal Values 2D ECHO LV Diastolic Diameter PLAX 5.3 cm 4.2 - 5.9 / 3.9 - 5.3 cm LV Systolic Diameter PLAX 3.7 cm IVS Diastolic Thickness 1.2 cm 0.6 - 1.0 / 0.6 - 0.9 cm LVPW Diastolic Thickness 1.1 cm 0.6 - 1.0 / 0.6 - 0.9 cm LV Relative Wall Thickness 0.4 LVOT Diameter 2.4 cm LA Volume Index 20.0 cm?/m? 16 - 28 cm?/m? Ascending Aorta Diameter 4.4 cm M-MODE Aortic Root Diameter MM 3.5 cm LA Systolic Diameter MM 3.4 cm LA Ao Ratio MM 1.0 AV Cusp Separation MM 2.4 cm DOPPLER AV Peak Velocity 136.0 cm/s AV Peak Gradient 7.4 mmHg AV Mean Gradient 4.0 mmHg AV Velocity Time Integral 26.7 cm LVOT Peak Velocity 111.0 cm/s LVOT Peak Gradient 4.9 mmHg LVOT Velocity Time Integral 20.3 cm LVOT Cardiac Index 2403.3 cm?/min?m? AV Area Cont Eq vti 3.4 cm? AV Area Cont Eq pk 3.7 cm? MV Peak Velocity 77.5 cm/s MV Peak Gradient 2.4 mmHg MV Mean Velocity 47.9 cm/s MV Mean Gradient 1.0 mmHg MV Area PHT 4.6 cm? Mitral E Point Velocity 63.1 cm/s Mitral A Point Velocity 56.3 cm/s Mitral E to A Ratio 1.1 LV E' Lateral Velocity 7.1 cm/s Mitral E to LV E' Lateral Ratio 8.9 LV E' Septal Velocity 6.6 cm/s Mitral E to LV E' Septal Ratio 9.5 TR Peak Velocity 121.0 cm/s TR Peak Gradient 5.9 mmHg FINDINGS Left Ventricle Normal left ventricular size, systolic function with no obvious regional wall motion abnormalities. Mild LVH. The ejection fraction is visually estimated at 55-60%. Right Ventricle The right ventricle is normal in size and systolic function. The estimated right ventricular systoli c pressure, 11mmHg.RAP 5. Left Atrium The left atrium is normal by two-dimensional, color flow and Doppler imaging with no structural abnormalities, no thrombus formation present. Right Atrium The right atrium is normal by two-dimensional imaging, color flow and Doppler imaging with no struct ural abnormalities, no thrombus formation present. Atrial Septum The interatrial septum appears normal with no evidence of a shunt. Aorta The aorta is normal by two-dimensional, color flow and Doppler interrogation. Mitral Valve The mitral valve is normal by two-dimensional, color flow and Doppler interrogation. There is no sig nificant mitral valve regurgitation. Aortic Valve The aortic valve is trileaflet. Mild sclerosis without stenosis. There is no significant aortic valv e regurgitation. Tricuspid Valve The tricuspid valve is normal by two-dimensional, color flow and Doppler interrogation. There is tra ce tricuspid valve regurgitation. Pulmonic Valve There is no significant pulmonic valve regurgitation. Vessels The pulmonary artery appears normal. The inferior vena cava pulmonary and hepatic veins appear siobhan l. Pericardium The pericardium is normal by two-dimensional imaging. There is no significant pericardial effusion. CONCLUSIONS Indication: Afib gamal RVR, RSV infection suboptimal images due to body habitus. Normal LV size and function. Mild LVH. Estimated EF 55-60% Stage 1 diastolic dysfunction. Normal RV size and function. Trace TRIgnacia Ivey (Electronically Signed) Final Date: 30 September 2024 18:45
[2024-09-29] MEDS: Magnesium Sulfate 4 GM Ivpb 4 GM/50 ML BAG IV (16:18)
[2024-09-29] MEDS: POTASSIUM CHLORIDE 20 mEq TABCR 40 MEQ PO (16:18)
--- NOTE | 2024-09-29 16:28 | PD.RESPRO ---
Documentation for date of: 09/29/24 Subjective Subjective Interval history: 09/28: no acute overnight events. PT is an ICU downgrade (Pt was in ICU for observation and amiodarone drip s/p electrical cardioversion.). Pt. will be transitioned to PO amiodarone and metoprolol after this last amio drip finishes. Pt. is on 5L oxygen via NC saturating at 98%, titrated the O2 downt o 1.5L and Pt. saturated at 97%. Pt's [id number] is 2, therefore will add anticoagulation ([id number]) since pt. has been going in and out of a-fib with RVR with HR 120'2 to 130's. Pt continues to complain of body aches, running nose due to RSV. Exam Vital Signs Temp Pulse Resp BP Pulse Ox O2 Del Method O2 Flow Rate 96.8 F 136 H 14 130/92 H 96 Nasal Cannula 2 09/29/24 16:00 09/29/24 16:00 09/29/24 16:00 09/29/24 16:00 09/29/24 16:00 09/29/24 16:00 09/29/24 16:00 FiO2 40 09/29/24 16:00 Narrative Exam GENERAL: A&Ox3 . Awake, Not in acute distress NEURO: no focal neurological deficits HEENT: Atraumatic, Normocephalic. mucous membranes moist. Eyes open, symmetrical, & clear HEART: Normal Heart Sounds LUNGS: Clear to auscultation with no wheezing or crackles. ABDOMEN: soft, non-distended, non-tender, bowel sounds heard, no guarding or rebound tenderness SKIN: No Rash or ecchymoses EXTREMITIES: trace LE edema bilaterally, no tenderness, able to move all 4 extremities, pedal pulses palpated Objective Labs 09/30/24 04:52 09/30/24 04:52 Labs: Laboratory Results - last 24 hr 09/29/24 05:26 WBC 10.7 H D RBC 5.21 Hgb 14.1 Hct 41.4 MCV 80 MCH 27.1 MCHC 34.1 RDW Std Deviation 42.8 Plt Count 183 Neut % (Auto) 76 Lymph % (Auto) 14 [place] % (Auto) 8 Eos % (Auto) 2 Baso % (Auto) 0 Neut # (Auto) 8.1 H Lymph # (Auto) 1.5 [place] # (Auto) 0.8 Eos # (Auto) 0.2 Baso # (Auto) 0.0 Immature Gran # (Auto) 0.07 H Absolute Nucleated RBC 0.00 Immature Gran % 1 H Nucleated RBC % 0 Sodium 139 Potassium 3.8 D Chloride 104 Carbon Dioxide 26.8 Anion Gap 8 BUN 10 Creatinine 0.8 Estim Creat Clear Calc 134.7 eGFR > 60 BUN/Creatinine Ratio 13 Glucose 111 H Calculated Osmolality 277 Calcium 8.8 Corrected Calcium 8.8 Phosphorus 2.7 Magnesium 1.9 Total Bilirubin 1.9 H D AST 18 ALT 13 Alkaline Phosphatase 64 Total Protein 7.3 Albumin 4.1 Globulin 3.2 Albumin/Globulin Ratio 1.3 ABG Interpretation ABG results: 09/27/24 14:32 ABG pH 7.40 ABG pCO2 40 ABG pO2 92 ABG HCO3 25 ABG O2 Saturation 98 ABG Base Excess 0 Quality Measures Quality Measures none Assessment & Plan Assessment Current Active Medications: Generic Name Dose Route Start Last Admin Trade Name Freq PRN Reason Stop Dose Admin Acetaminophen 650 mg 09/28/24 11:55 09/28/24 12:02 Acetaminophen 325 Mg Tablet PO 10/27/24 15:49 650 mg Q6H PRN Administration Fever >100.3 or pain (1-3) Hydrocodone Bitart/Acetaminophen 1 tab 09/28/24 19:48 09/28/24 20:15 Hydrocodone/Apap 5/325 Tablet PO 10/03/24 19:47 1 tab Q6HR PRN Administration PAIN SCALE 4-10(Mod-Sev Amiodarone HCl 200 mg 09/29/24 14:00 09/29/24 14:09 Amiodarone Hcl 200 Mg Tablet PO 10/29/24 13:59 200 mg BID RAÚL Administration Apixaban 5 mg 09/29/24 21:00 Apixaban 2.5 Mg Tablet PO 10/29/24 20:59 BID RAÚL Atorvastatin Calcium 40 mg 09/27/24 21:00 09/28/24 20:15 Atorvastatin Calcium 20 Mg Tablet PO 10/27/24 20:59 40 mg HS RAÚL Administration Azithromycin 500 mg 09/29/24 09:00 09/29/24 09:58 Azithromycin 250 Mg Tablet PO 10/02/24 08:59 500 mg QDAY RAÚL Administration Protocol Budesonide 0.5 mg 09/28/24 10:40 09/29/24 07:05 Budesonide Rt 0.5 Mg/2 Ml Nebu INH 10/28/24 10:39 0.5 mg BIDRT RAÚL Administration Dextrose 25 ml 09/27/24 15:57 Dextrose 50%-Water Inj 50 Ml Syringe IV 10/27/24 15:56 Q15MIN PRN BG 50-70 responsive npo pt Dextrose 50 ml 09/27/24 15:57 Dextrose 50%-Water Inj 50 Ml Syringe IV 10/27/24 15:56 Q15MIN PRN BG <50 OR BG <70 & pt unresponsive Glucagon 1 mg 09/27/24 15:57 Glucagon Inj 1 Mg Vial IM Q15MIN PRN BG <70, and no IV access Heparin Sodium (Porcine) 5,000 unit 09/27/24 21:00 09/29/24 09:58 Heparin Sod Inj 5000 Unit/Ml Vial SC 10/11/24 20:59 5,000 unit Q12HR RAÚL Administration Ceftriaxone Sodium 2 gm/ 50 mls @ 100 mls/hr 09/27/24 16:15 09/29/24 09:57 Sodium Chloride IV 10/02/24 16:14 100 mls/hr QDAY RAÚL Administration Magnesium Sulfate 4 gm in 50 mls @ 12.5 mls/hr 09/29/24 15:28 09/29/24 16:18 Magnesium Sulfate Ivpb IV 09/29/24 19:27 12.5 mls/hr X1 ONE Administration Insulin Human Lispro 0 unit 09/27/24 17:00 09/29/24 11:16 Insulin Lispro (Admelog) 1 Unit/0.01 Ml Unit SC 10/27/24 16:59 Not Given [facility] Protocol Metoprolol Succinate 100 mg 09/27/24 15:45 09/29/24 09:59 Metoprolol Succinate Xl 25 Mg Tabcr PO 10/27/24 15:44 100 mg QDAY RAÚL Administration Ondansetron HCl 4 mg 09/27/24 15:50 09/29/24 00:13 Ondansetron Inj 2 Mg/Ml Inj 2 Ml IV 10/27/24 15:49 4 mg Q6H PRN Administration NAUSEA OR VOMITING Protocol Pantoprazole Sodium 40 mg 09/27/24 16:00 09/29/24 09:58 Pantoprazole Inj 40 Mg Vial IVP 10/27/24 15:59 40 mg QDAY RAÚL Administration Sennosides 1 tab 09/27/24 15:50 Senna Tablet PO 10/27/24 15:49 QDAY PRN constipation Protocol Plan Charles Chavez is a 59 yr male with PMH of HLD, frequent admissions due to recurrent episodes of A-fib RVR with RBBB, int-alwbpmp-fhpzwhzle type 2 diabetes, morbid obesity, KODI/OHS on CPAP who presented to ED after experiencing worsening SOB and chest pain. 12 lead EKG showed AFib RVR with RBBB. Patient received one round of electrocardio conversion in and 6 mg adenosine x 1. Patient admitted to ICU for observation s/p cardioversion and treatment for severe sepsis secondary to pneumonia downgraded to telemetry on 09/29/24. #Afib RVR with RBBB In ED, patient received 1 round electrocardio conversion and 6 mg adenosine x 1. Troponins were negative. Unclear at this time if patient was able to follow-up with EP for possible ablation therapy due to recurrent episodes of chest pain and shortness of breath due to the underlying dysrhythmia. Per , patient is to see Dr. Ivey this month. Dr. Lee was consulted and patient was admitted to ICU for observation and treatment of A-fib with RBBB. CHADSVASC score 2 (hx DM) 0.6% stroke risk per year. Plan: -amiodarone drip was started in the ICU -Pt is transitioned to amiodarone 200 mg p.o. twice daily and metoprolol 100mg Qday however Pt HR remained in the 120's-130's -Per cardio recommendations, will start pt on amio drip after 300mg amio bolus -Started Eliquis 5 Mg daily for anticoagulation in the setting of A-fib -continue to monitor electrolytes keeping potassium >4.0 and Mg >2.0. -Patient is appropriate candidate for cardio ablation therapy. Referral to electrophysiology. ? Continue home medication atorvastatin 40 mg daily. #severe sepsis secondary to #RSV pneumonia #Bilateral CAP with possible superimposed -Patient meet SIRS 4/4 criteria with source of infection being pneumonia. Temperature increased to 104.4 while in ED. This alert was called and patient was given 1 L bolus fluids along with 3 L maintenance fluids. -on admission Lactic acid peaked 4.6. WBC 14.5. -Patient has been experiencing shortness of breath with exposure to sick contact 2 days who was positive for RSV. -Chest x-ray suspicious for superimposed pneumonia at lung bases, mild heart failure pattern. Plan: -Sputum culture/Gram stain pending. -Azithromycin 500 mg daily for 5 days 9 (10/02). -Ceftriaxone 2 g IV daily for 5 days (10/02). -Supportive therapy for RSV pneumonia. ? Blood cultures pending. ? Urine culture pending #Hx KODI. #Hx OHS. Patient is compliant with CPAP she nightly. Plan: -Continue CPAP at bedtime. #Hx wto-akhfbba-houjznwim type 2 diabetes #Diabetic neuropathy Patient does not check blood sugars at home. On admission initial glucose 161. Last A1c 5.5 on 10/2023. Patient takes Metformin 500 mg twice daily, Mounjaro 15 mg for diabetes at home. Plan: -Held home medications. -Bedside blood glucose checks AC. -Insulin lispro sliding scale. -Carb consistent low diet. -Continue gabapentin 600 mg daily. #20mm liver lesion. Plan: -follow up outpatient. Health maintenance: Dispo: tele amiodarone drip s/p electrical cardioversion. DVT prophylaxis: Subcu heparin q12hr CODE STATUS: Full code Diet: Low carb consistent, cardiac diet Lines: peripheral. Assessment and plan discussed with my attending physician Dr. Cyndee Hansen (PGY-1)- Internal medicine resident Attending Provider Attestation/Addendum 59-year-old male with multiple comorbidities including hypertension, hyperlipidemia, type 2 diabetes mellitus, morbid obesity with subsequent KODI/OHS on BiPAP and subsequent A-fib who presented with A-fib with RVR and subsequently received adenosine with minimal improvement and subsequently underwent electrical cardioversion. Furthermore, patient started on amiodarone drip and transferred to ICU. Overnight, patient was subsequently downgraded to MedSur and plan to continue amiodarone drip and metoprolol in addition to Eliquis 5 mg daily. Appreciate cardiology input. Patient is A-fib with RVR likely related to severe sepsis secondary to RSV pneumonia versus superimposed bacterial infection. Continue azithromycin and ceftriaxone. I reviewed above note and agree with findings and plans. I have also personally examined the patient with medicine team and went over assessment and plan with medical team including marketing summer intern and resident physician.
[2024-09-29] MEDS: WATER IV (18:32)
[2024-09-29] MEDS: DEXTROSE 5% IV (18:32)
[2024-09-29] MEDS: AMIODARONE IV (18:32)
[2024-09-29] MEDS: AMIODARONE 360 MG IVPB 360 MG/200 ML BAG 33.333 MG IV (19:00)
[2024-09-29] MEDS: ATORVASTATIN CALCIUM 20 MG TABLET 40 MG PO (20:58)
[2024-09-29] MEDS: APIXABAN 2.5 MG TABLET 5 MG PO (20:58)
[2024-09-29] MEDS: GABAPENTIN 100 MG CAPSULE 600 MG PO (22:16)
[2024-09-30] VITALS (16 sets, daily range): BP systolic 111–132; BP diastolic 76–86; PULSE 70–132; RESP 11–22; TEMP 36.1–36.4; O2SAT 93–100; BMI 45.4; BMI 45.6
[2024-09-30] MEDS: AMIODARONE 360 MG IVPB 360 MG/200 ML BAG 16.667 MG IV (01:03)
[2024-09-30 05:31] LABS: Basophils % (Auto) 0 % (0-2.5); Eosinophils # (Auto) 0.2 Thou/mm3 (0.0-0.5); Eosinophils % (Auto) 3 % (0-10); Hematocrit 39.8 % (41.0-53.0); Hemoglobin 13.5 g/dL (13.5-16.0); Immature Granulocytes % (Auto) 1 % (0-0); Immature Granulocytes Auto 0.06 Thou/mm3 (0.00-0.00); Lymphocytes # (Auto) 1.5 Thou/mm3 (1.0-4.8); Lymphocytes % (Auto) 18 % (10-50); Mean Corpuscular HGB Conc 33.9 g/dl (31.0-37.0); Mean Corpuscular Hemoglobin 27.1 pg (25.0-35.0); Mean Corpuscular Volume 80 fL (80-100); Monocytes # (Auto) 0.7 Thou/mm3 (0.0-0.8); Monocytes % (Auto) 9 % (0-12); Neutrophils # (Auto) 5.7 Thou/mm3 (1.8-7.7); Neutrophils % (Auto) 70 % (37-80); Nucleated Red Blood Cell % 0 /100 WBC (0); Platelet Count 184 Thou/mm3 (140-440); RDW Standard Deviation 43.8 fL (35.1-43.9); Red Blood Count 4.98 Miln/mm3 (4.50-5.90); White Blood Count 8.2 Thou/mm3 (3.8-10.6)
[2024-09-30 06:28] LABS: Alanine Aminotransferase 9 U/L (10-49); Albumin, Serum 4.2 gm/dL (3.4-4.8); Albumin/Globulin Ratio 1.4 (1.2-2.2); Alkaline Phosphatase 64 U/L (46-116); Anion Gap 8 (7-16); Aspartate Amino Transferase 21 U/L (0-34); BUN/Creatinine Ratio 11 Ratio (12-20); Bilirubin,Total 1.2 mg/dL (0.3-1.2); Blood Urea Nitrogen 9 mg/dL (9-23); Calcium 8.9 mg/dL (8.3-10.6); Calcium (Corrected) 8.9 mg/dL (8.5-10.1); Carbon Dioxide 27.9 mMol/L (20.0-31.0); Chloride 102 mMol/L (98-107); Creatinine (Component) 0.8 mg/dL (0.6-1.3); Estimated Creatinine Clearance 134.7 mL/min (>60); Globulin 2.9 gm/dL (2.3-3.5); Glucose 94 mg/dL (74-106); Osmolality,Calculated 274 (275-295); Phosphorous 3.3 mg/dL (2.4-5.1); Potassium 4.1 mMol/L (3.4-5.1); Sodium 138 mMol/L (136-145); Total Protein 7.1 gm/dL (5.7-8.2); eGFR > 60 See Note
[2024-09-30] MEDS: BUDESONIDE RT 0.5 MG/2 ML NEBU INH ×2 (07:15→19:00)
--- NOTE | 2024-09-30 07:55 | ESPR_ITS ---
<Statement entered by Keyur Ivey MD - 10/01/24 01:00> I reviewed the resident Dr. Geiger consultation progress note and agree with the resident findings and plan in the note above and have also edited the documentation to reflect my findings and plan. Patient converted to normal sinus rhythm after restarting the amiodarone drip which was completed this morning. Patient is on amiodarone 200 mg twice daily which would be the discharging dose. Please continue metoprolol XL 100 mg once daily for now. Echocardiogram completed today showed normal LV ejection fraction at 55 to 60%. Patient recommended to follow-up with me in the clinic in the next 1 week and will refer the patient to EP evaluation for ablation for his recurrent atrial fibrillation with RVR. If patient declines the ablation then we will try to restart the patient on flecainide as he was doing well on the medication prior to his RSV infection given the long-term side effect profile of the amiodarone. Continue Xarelto for anticoagulation Keyur Ivey M.D. Interventional Cardiology Documentation for date of: 09/30/24 Subjective Subjective Interval history: Patient examined at bedside today. No acute overnight events. Patient maintained 70s to 80s on telemetry throughout the night as he was on Amio drip started yesterday. Says that he slept well yesterday and was able to use his CPAP. Says that he still has not had a bowel movement while being in the hospital. Patient reports that he feels much better, is saying that he really wants to get his ablation done on an outpatient setting. Expresses that he is unsure how he was diagnosed with diabetes or how he got A-fib. Was expressing deep emotions in regards to his health and his past, is requesting to speak with the program production specialist. Denies having any chest pain, shortness of breath, palpitations or upper abdominal pain. No other complaints at this time Exam Vital Signs Temp Pulse Resp BP Pulse Ox O2 Del Method O2 Flow Rate 97.4 F 74 20 122/81 100 BiPAP 2 09/30/24 04:00 09/30/24 07:18 09/30/24 07:18 09/30/24 04:00 09/30/24 07:18 09/30/24 04:00 09/30/24 07:18 FiO2 35 09/30/24 07:18 Narrative Exam General: AAOx3, NAD, morbidly obese male, More awake than yesterday, extremely emotional and was crying HEENT: Moist mucous membranes, conjunctiva clear, EOMI, PERRLA, Cardiovascular: S1, S2, radial pulses +2 bilat, Irregularly irregular rhythm Pulmonary: CTAB bilat no cough, no wheezing GI: No tenderness to light or deep palpitation, no guarding, rigidity, rebound tenderness or distension Extremities: trace edema in lower extremities bilaterally, dorsalis pedis pulses +2 bilaterally, patch of purpura on LUE near shoulder Neuro: AAOx3, no focal motor or sensory deficits in the UE or LE bilat Psych: Good judgement, thought and behavior, Cooperative. Objective Labs 09/30/24 04:52 09/30/24 04:52 Labs: Laboratory Results - last 24 hr 09/30/24 04:52 WBC 8.2 RBC 4.98 Hgb 13.5 Hct 39.8 L MCV 80 MCH 27.1 MCHC 33.9 RDW Std Deviation 43.8 Plt Count 184 Neut % (Auto) 70 Lymph % (Auto) 18 [place]one % (Auto) 9 Eos % (Auto) 3 Baso % (Auto) 0 Neut # (Auto) 5.7 Lymph # (Auto) 1.5 [place] # (Auto) 0.7 Eos # (Auto) 0.2 Baso # (Auto) 0.0 Immature Gran # (Auto) 0.06 H Absolute Nucleated RBC 0.00 Immature Gran % 1 H Nucleated RBC % 0 Sodium 138 Potassium 4.1 Chloride 102 Carbon Dioxide 27.9 Anion Gap 8 BUN 9 Creatinine 0.8 Estim Creat Clear Calc 134.7 eGFR > 60 BUN/Creatinine Ratio 11 L Glucose 94 Calculated Osmolality 274 L Calcium 8.9 Corrected Calcium 8.9 Phosphorus 3.3 Magnesium 2.0 Total Bilirubin 1.2 D AST 21 ALT 9 L Alkaline Phosphatase 64 Total Protein 7.1 Albumin 4.2 Globulin 2.9 Albumin/Globulin Ratio 1.4 ABG Interpretation ABG results: 09/27/24 14:32 ABG pH 7.40 ABG pCO2 40 ABG pO2 92 ABG HCO3 25 ABG O2 Saturation 98 ABG Base Excess 0 Quality Measures Quality Measures none Assessment & Plan Assessment Current Active Medications: Generic Name Dose Route Start Last Admin Trade Name Freq PRN Reason Stop Dose Admin Acetaminophen 650 mg 09/28/24 11:55 09/28/24 12:02 Acetaminophen 325 Mg Tablet PO 10/27/24 15:49 650 mg Q6H PRN Administration Fever >100.3 or pain (1-3) Hydrocodone Bitart/Acetaminophen 1 tab 09/28/24 19:48 09/28/24 20:15 Hydrocodone/Apap 5/325 Tablet PO 10/03/24 19:47 1 tab Q6HR PRN Administration PAIN SCALE 4-10(Mod-Sev Amiodarone HCl 200 mg 09/29/24 14:00 09/29/24 14:09 Amiodarone Hcl 200 Mg Tablet PO 10/29/24 13:59 200 mg BID RAÚL Administration Apixaban 5 mg 09/29/24 21:00 09/29/24 20:58 Apixaban 2.5 Mg Tablet PO 10/29/24 20:59 5 mg BID RAÚL Administration Atorvastatin Calcium 40 mg 09/27/24 21:00 09/29/24 20:58 Atorvastatin Calcium 20 Mg Tablet PO 10/27/24 20:59 40 mg HS RAÚL Administration Azithromycin 500 mg 09/29/24 09:00 09/29/24 09:58 Azithromycin 250 Mg Tablet PO 10/02/24 08:59 500 mg QDAY RAÚL Administration Protocol Budesonide 0.5 mg 09/28/24 10:40 09/30/24 07:15 Budesonide Rt 0.5 Mg/2 Ml Nebu INH 10/28/24 10:39 0.5 mg BIDRT RAÚL Administration Dextrose 25 ml 09/27/24 15:57 Dextrose 50%-Water Inj 50 Ml Syringe IV 10/27/24 15:56 Q15MIN PRN BG 50-70 responsive npo pt Dextrose 50 ml 09/27/24 15:57 Dextrose 50%-Water Inj 50 Ml Syringe IV 10/27/24 15:56 Q15MIN PRN BG <50 OR BG <70 & pt unresponsive Gabapentin 600 mg 09/29/24 22:10 09/29/24 22:16 Gabapentin 100 Mg Capsule PO 10/29/24 22:09 600 mg QDAY RAÚL Administration Glucagon 1 mg 09/27/24 15:57 Glucagon Inj 1 Mg Vial IM Q15MIN PRN BG <70, and no IV access Heparin Sodium (Porcine) 5,000 unit 09/27/24 21:00 09/29/24 09:58 Heparin Sod Inj 5000 Unit/Ml Vial SC 10/11/24 20:59 5,000 unit Q12HR RAÚL Administration Ceftriaxone Sodium 2 gm/ 50 mls @ 100 mls/hr 09/27/24 16:15 09/29/24 09:57 Sodium Chloride IV 10/02/24 16:14 100 mls/hr QDAY RAÚL Administration Insulin Human Lispro 0 unit 09/27/24 17:00 09/30/24 07:41 Insulin Lispro (Admelog) 1 Unit/0.01 Ml Unit SC 10/27/24 16:59 Not Given AC RAÚL Protocol Metoprolol Succinate 100 mg 09/27/24 15:45 09/29/24 09:59 Metoprolol Succinate Xl 25 Mg Tabcr PO 10/27/24 15:44 100 mg QDAY RAÚL Administration Ondansetron HCl 4 mg 09/27/24 15:50 09/29/24 00:13 Ondansetron Inj 2 Mg/Ml Inj 2 Ml IV 10/27/24 15:49 4 mg Q6H PRN Administration NAUSEA OR VOMITING Protocol Pantoprazole Sodium 40 mg 09/27/24 16:00 09/29/24 09:58 Pantoprazole Inj 40 Mg Vial IVP 10/27/24 15:59 40 mg QDAY RAÚL Administration Sennosides 1 tab 09/27/24 15:50 Senna Tablet PO 10/27/24 15:49 QDAY PRN constipation Protocol Plan Asssessment Charles Chavez is a 59 yr male with PMH of HLD, frequent admissions due to recurrent episodes of A-fib RVR with RBBB, wmc-aiouben-fxmexskee type 2 diabetes, morbid obesity, KODI/OHS on CPAP who presented to ED after experiencing worsening SOB and chest pain. 12 lead EKG showed AFib RVR with RBBB. Patient received one round of electrocardio conversion in and 6 mg adenosine x 1. Patient admitted to ICU for observation s/p cardioversion and treatment for severe sepsis secondary to pneumonia. #Afib RVR with RBBB Received 6 mg of Adenosine, in ED, then went into wide QRS tachycardia and was then cardioversion. Pt was then admitted to ICU for further management CHADSVASC score 1 (hx DM) 0.6% stroke risk per year. Finished Amio Drip, currently on Amio 200 PO Pt most likely went into Afib with RVR as pt is experiencing increased stress with RSV pneumonia Was on flecainide 100 mg BID at home, however, would like to resume this at some point rather continuing Amio Patient is a cardiac ablation candidate to be set up outpatient Patient's heart rate has been in the 70s and 80s overnight on telemetry after finishing Amio drip Would like to resume patient on flecainide at some point, will not change metoprolol dosing at this time Echo shows EF 55-60%, G1DD Plan: -Continue Amio 200 po BID -Continue metoprolol succinate 100 mg -Eliquis 5 mg BID -Continue to monitor electrolytes keeping potassium >4.0 and Mg >2.0 ?Treat underlying infection which is what put patient in A-fib most likely #Hx waf-hujctzs-vnexrigct type 2 diabetes Last A1c of 5.2 in September 2024 Plan: Management by primary hospitalist team #Hx of KODI #Hx of OHS Patient was able to use CPAP last night, patient feels much better in terms of alertness and being awake Maintaining adequate oxygen saturations will allow for patient to be stable and low risk for going into A-fib Currently on 2 L nasal cannula Plan: ?Continue with CPAP at night #Bilateral CAP with possible superimposed. #RSV pneumonia. #20mm liver lesion #Diabetic neuropathy #Severe sepsis 2/2 CAP vs RSV PNA #History of morbid obesity Above managed by primary hospitalist team Patient seen and care discussed with my attending physician, Dr. Uche Mcbride, PGY-1
--- NOTE | 2024-09-30 08:55 | PC.SS ---
Follow up note 09/29/24: SS met with patient regarding his d/c plan. Pt is alert/oriented. Pt was admitted for Hard Time Breathing, Sore Throat, CX. Pt confirmed demographic and contact information is correct on facesheet. Pt resides with . Pt ambulates independently without assistance or DME. Pt is ok with all ADLs. Pt states he uses a CPAP Machine at night from [facility]. Patient?s pharmacy of choice is [facility] on [address]. Pt named his Madeline Dietrich medical decision maker if he is unable. Patient?s choice is to return home upon d/c. Pt states he is diabetic but does not have glucometer/test strips. SS has informed [place] dietitian who will follow up with pt regarding glucometer. Pt followed up with PCP in August 2024 D/C plan: Return home Next of Kin: Madeline Dietrich, , phone# [phone] PCP: Dr. Romo Address: Correct on facesheet
[2024-09-30] MEDS: cefTRIAXone 2 GM in SODIUM CHLORIDE 0.9% (P) 50 ML IV (09:17)
[2024-09-30] MEDS: PANTOPRAZOLE INJ 40 MG VIAL IVP (09:17)
[2024-09-30] MEDS: AZITHROMYCIN 250 MG TABLET 500 MG PO (09:18)
[2024-09-30] MEDS: APIXABAN 2.5 MG TABLET 5 MG PO ×2 (09:18→20:34)
[2024-09-30] MEDS: GABAPENTIN 300 MG CAPSULE 600 MG PO (09:19)
[2024-09-30] MEDS: ALBUTEROL/IPRATROPIUM (Duoneb) RT SOL 3 ML NEBU INH ×4 (10:35→22:00)
[2024-09-30] MEDS: BENZONATATE 100 MG CAPSULE PO ×2 (14:34→21:35)
--- NOTE | 2024-09-30 14:41 | PD.RESPRO ---
Documentation for date of: 09/30/24 Exam Vital Signs Temp Pulse Resp BP Pulse Ox O2 Del Method O2 Flow Rate 97.6 F 85 16 111/76 95 Room Air 2 09/30/24 12:00 09/30/24 12:00 09/30/24 12:00 09/30/24 12:00 09/30/24 12:00 09/30/24 12:00 09/30/24 07:18 FiO2 35 09/30/24 07:18 Objective Labs 09/30/24 04:52 09/30/24 04:52 Labs: Laboratory Results - last 24 hr 09/30/24 04:52 WBC 8.2 RBC 4.98 Hgb 13.5 Hct 39.8 L MCV 80 MCH 27.1 MCHC 33.9 RDW Std Deviation 43.8 Plt Count 184 Neut % (Auto) 70 Lymph % (Auto) 18 Stewart % (Auto) 9 Eos % (Auto) 3 Baso % (Auto) 0 Neut # (Auto) 5.7 Lymph # (Auto) 1.5 Stewart # (Auto) 0.7 Eos # (Auto) 0.2 Baso # (Auto) 0.0 Immature Gran # (Auto) 0.06 H Absolute Nucleated RBC 0.00 Immature Gran % 1 H Nucleated RBC % 0 Sodium 138 Potassium 4.1 Chloride 102 Carbon Dioxide 27.9 Anion Gap 8 BUN 9 Creatinine 0.8 Estim Creat Clear Calc 134.7 eGFR > 60 BUN/Creatinine Ratio 11 L Glucose 94 Calculated Osmolality 274 L Calcium 8.9 Corrected Calcium 8.9 Phosphorus 3.3 Magnesium 2.0 Total Bilirubin 1.2 D AST 21 ALT 9 L Alkaline Phosphatase 64 Total Protein 7.1 Albumin 4.2 Globulin 2.9 Albumin/Globulin Ratio 1.4 ABG Interpretation ABG results: 09/27/24 14:32 ABG pH 7.40 ABG pCO2 40 ABG pO2 92 ABG HCO3 25 ABG O2 Saturation 98 ABG Base Excess 0 Quality Measures Quality Measures none Assessment & Plan Assessment Current Active Medications: Generic Name Dose Route Start Last Admin Trade Name Freq PRN Reason Stop Dose Admin Acetaminophen 650 mg 09/28/24 11:55 09/28/24 12:02 Acetaminophen 325 Mg Tablet PO 10/27/24 15:49 650 mg Q6H PRN Administration Fever >100.3 or pain (1-3) Hydrocodone Bitart/Acetaminophen 1 tab 09/28/24 19:48 09/28/24 20:15 Hydrocodone/Apap 5/325 Tablet PO 10/03/24 19:47 1 tab Q6HR PRN Administration PAIN SCALE 4-10(Mod-Sev Albuterol/Ipratropium 3 ml 09/30/24 11:00 09/30/24 10:35 Albuterol/Ipratropium (Duoneb) Rt Kristy 3 Ml Nebu INH 10/30/24 10:59 3 ml Q4HRRT RAÚL Administration Amiodarone HCl 200 mg 09/29/24 14:00 09/29/24 14:09 Amiodarone Hcl 200 Mg Tablet PO 10/29/24 13:59 200 mg BID RAÚL Administration Apixaban 5 mg 09/29/24 21:00 09/30/24 09:18 Apixaban 2.5 Mg Tablet PO 10/29/24 20:59 5 mg BID RAÚL Administration Atorvastatin Calcium 40 mg 09/27/24 21:00 09/29/24 20:58 Atorvastatin Calcium 20 Mg Tablet PO 10/27/24 20:59 40 mg HS RAÚL Administration Azithromycin 500 mg 09/29/24 09:00 09/30/24 09:18 Azithromycin 250 Mg Tablet PO 10/02/24 08:59 500 mg QDAY RAÚL Administration Protocol Benzonatate 100 mg 09/30/24 14:00 09/30/24 14:34 Benzonatate 100 Mg Capsule PO 10/30/24 13:59 100 mg Q8HR RAÚL Administration Protocol Budesonide 0.5 mg 09/28/24 10:40 09/30/24 07:15 Budesonide Rt 0.5 Mg/2 Ml Nebu INH 10/28/24 10:39 0.5 mg BIDRT RAÚL Administration Dextrose 25 ml 09/27/24 15:57 Dextrose 50%-Water Inj 50 Ml Syringe IV 10/27/24 15:56 Q15MIN PRN BG 50-70 responsive npo pt Dextrose 50 ml 09/27/24 15:57 Dextrose 50%-Water Inj 50 Ml Syringe IV 10/27/24 15:56 Q15MIN PRN BG <50 OR BG <70 & pt unresponsive Gabapentin 600 mg 09/30/24 09:15 09/30/24 09:19 Gabapentin 300 Mg Capsule PO 10/30/24 09:14 600 mg QDAY RAÚL Administration Glucagon 1 mg 09/27/24 15:57 Glucagon Inj 1 Mg Vial IM Q15MIN PRN BG <70, and no IV access Ceftriaxone Sodium 2 gm/ 50 mls @ 100 mls/hr 09/27/24 16:15 09/30/24 09:17 Sodium Chloride IV 10/02/24 16:14 100 mls/hr QDAY RAÚL Administration Insulin Human Lispro 0 unit 09/27/24 17:00 09/30/24 11:18 Insulin Lispro (Admelog) 1 Unit/0.01 Ml Unit SC 10/27/24 16:59 Not Given AC RAÚL Protocol Metoprolol Succinate 100 mg 09/27/24 15:45 09/29/24 09:59 Metoprolol Succinate Xl 25 Mg Tabcr PO 10/27/24 15:44 100 mg QDAY RAÚL Administration Ondansetron HCl 4 mg 09/27/24 15:50 09/29/24 00:13 Ondansetron Inj 2 Mg/Ml Inj 2 Ml IV 10/27/24 15:49 4 mg Q6H PRN Administration NAUSEA OR VOMITING Protocol Pantoprazole Sodium 40 mg 09/27/24 16:00 09/30/24 09:17 Pantoprazole Inj 40 Mg Vial IVP 10/27/24 15:59 40 mg QDAY RAÚL Administration Sennosides 1 tab 09/27/24 15:50 Senna Tablet PO 10/27/24 15:49 QDAY PRN constipation Protocol Attending Provider Attestation/Addendum Senior resident attestation: Patient evaluated and examined at the bedside, plan of care discussed with rest of the team including my attending physician, except as noted. Patient is a 59-year-old male who was admitted to the hospital following episode of A-fib RVR and transient V-fib requiring cardioversion and ICU stay. Found to have RSV pneumonia, #A-fib RVR : #V-fib ?Started on amiodarone drip and anticoagulation. Patient continued to have A-fib RVR with heart rate in the 130s despite finishing amiodarone loading dose. Cardiology was consulted and followed the patient, added metoprolol 100 mg daily and recommended restarting another cycle of IV amiodarone, which was done. Of note patient has prior prescriptions of flecainide and Xarelto. Will discontinue Xarelto and aspirin on discharge due to risk of increased bleeding. Flecainide will be resumed per cardiology instructions. #RSV pneumonia #Super imposed bacterial pneumonia ?IV ceftriaxone and azithromycin to be continued through 10/02/2024. Will switch IV ceftriaxone to Keflex on discharge. Quresh PGY2
--- NOTE | 2024-09-30 15:08 | ESPR_ITS ---
Documentation for date of: 09/30/24 Subjective Subjective Interval history: Patient seen at bedside today. He is resting comfortably in bed. He continues to remain on oxygen but oxygen is being titrated down actively. Patient was having significant cough so Tessalon Perles were added to his regimen, also DuoNebs will be ordered due to the fact that wheezes were heard during auscultation. Awaiting cardiology recommendations and amiodarone IV drip to discontinue. Patient will not be transitioned over to p.o. amiodarone following the drip according to previous cardiology recommendations. Will attempt to increase beta-neo dose and put the patient on flecainide as a pill in the pocket method for when he has episodes of exacerbation. [id number] score of 2 so we will continue with anticoagulation with Eliquis 5 mg twice daily. Exam Vital Signs Temp Pulse Resp BP Pulse Ox O2 Del Method O2 Flow Rate 97.6 F 79 16 111/76 98 Room Air 2 09/30/24 12:00 09/30/24 14:44 09/30/24 14:44 09/30/24 12:00 09/30/24 14:44 09/30/24 12:00 09/30/24 07:18 FiO2 35 09/30/24 07:18 Narrative Exam GENERAL: A&Ox3 . Awake, Not in acute distress NEURO: no focal neurological deficits HEENT: Atraumatic, Normocephalic. mucous membranes moist. Eyes open, symmetrical, & clear HEART: Normal Heart Sounds LUNGS: Mild wheeze heard on expiration. ABDOMEN: soft, non-distended, non-tender, bowel sounds heard, no guarding or rebound tenderness SKIN: No Rash or ecchymoses EXTREMITIES: trace LE edema bilaterally, no tenderness, able to move all 4 extremities, pedal pulses palpated Objective Labs 09/30/24 04:52 09/30/24 04:52 Labs: Laboratory Results - last 24 hr 09/30/24 04:52 WBC 8.2 RBC 4.98 Hgb 13.5 Hct 39.8 L MCV 80 MCH 27.1 MCHC 33.9 RDW Std Deviation 43.8 Plt Count 184 Neut % (Auto) 70 Lymph % (Auto) 18 [place] % (Auto) 9 Eos % (Auto) 3 Baso % (Auto) 0 Neut # (Auto) 5.7 Lymph # (Auto) 1.5 [place] # (Auto) 0.7 Eos # (Auto) 0.2 Baso # (Auto) 0.0 Immature Gran # (Auto) 0.06 H Absolute Nucleated RBC 0.00 Immature Gran % 1 H Nucleated RBC % 0 Sodium 138 Potassium 4.1 Chloride 102 Carbon Dioxide 27.9 Anion Gap 8 BUN 9 Creatinine 0.8 Estim Creat Clear Calc 134.7 eGFR > 60 BUN/Creatinine Ratio 11 L Glucose 94 Calculated Osmolality 274 L Calcium 8.9 Corrected Calcium 8.9 Phosphorus 3.3 Magnesium 2.0 Total Bilirubin 1.2 D AST 21 ALT 9 L Alkaline Phosphatase 64 Total Protein 7.1 Albumin 4.2 Globulin 2.9 Albumin/Globulin Ratio 1.4 ABG Interpretation ABG results: 09/27/24 14:32 ABG pH 7.40 ABG pCO2 40 ABG pO2 92 ABG HCO3 25 ABG O2 Saturation 98 ABG Base Excess 0 Quality Measures Quality Measures none Assessment & Plan Assessment Current Active Medications: Generic Name Dose Route Start Last Admin Trade Name Freq PRN Reason Stop Dose Admin Acetaminophen 650 mg 09/28/24 11:55 09/28/24 12:02 Acetaminophen 325 Mg Tablet PO 10/27/24 15:49 650 mg Q6H PRN Administration Fever >100.3 or pain (1-3) Hydrocodone Bitart/Acetaminophen 1 tab 09/28/24 19:48 09/28/24 20:15 Hydrocodone/Apap 5/325 Tablet PO 10/03/24 19:47 1 tab Q6HR PRN Administration PAIN SCALE 4-10(Mod-Sev Albuterol/Ipratropium 3 ml 09/30/24 11:00 09/30/24 14:42 Albuterol/Ipratropium (Duoneb) Rt Kristy 3 Ml Nebu INH 10/30/24 10:59 3 ml Q4HRRT RAÚL Administration Amiodarone HCl 200 mg 09/29/24 14:00 09/29/24 14:09 Amiodarone Hcl 200 Mg Tablet PO 10/29/24 13:59 200 mg BID RAÚL Administration Apixaban 5 mg 09/29/24 21:00 09/30/24 09:18 Apixaban 2.5 Mg Tablet PO 10/29/24 20:59 5 mg BID RAÚL Administration Atorvastatin Calcium 40 mg 09/27/24 21:00 09/29/24 20:58 Atorvastatin Calcium 20 Mg Tablet PO 10/27/24 20:59 40 mg HS RAÚL Administration Azithromycin 500 mg 09/29/24 09:00 09/30/24 09:18 Azithromycin 250 Mg Tablet PO 10/02/24 08:59 500 mg QDAY RAÚL Administration Protocol Benzonatate 100 mg 09/30/24 14:00 09/30/24 14:34 Benzonatate 100 Mg Capsule PO 10/30/24 13:59 100 mg Q8HR RAÚL Administration Protocol Budesonide 0.5 mg 09/28/24 10:40 09/30/24 07:15 Budesonide Rt 0.5 Mg/2 Ml Nebu INH 10/28/24 10:39 0.5 mg BIDRT RAÚL Administration Dextrose 25 ml 09/27/24 15:57 Dextrose 50%-Water Inj 50 Ml Syringe IV 10/27/24 15:56 Q15MIN PRN BG 50-70 responsive npo pt Dextrose 50 ml 09/27/24 15:57 Dextrose 50%-Water Inj 50 Ml Syringe IV 10/27/24 15:56 Q15MIN PRN BG <50 OR BG <70 & pt unresponsive Gabapentin 600 mg 09/30/24 09:15 09/30/24 09:19 Gabapentin 300 Mg Capsule PO 10/30/24 09:14 600 mg QDAY RAÚL Administration Glucagon 1 mg 09/27/24 15:57 Glucagon Inj 1 Mg Vial IM Q15MIN PRN BG <70, and no IV access Ceftriaxone Sodium 2 gm/ 50 mls @ 100 mls/hr 09/27/24 16:15 09/30/24 09:17 Sodium Chloride IV 10/02/24 16:14 100 mls/hr QDAY RAÚL Administration Insulin Human Lispro 0 unit 09/27/24 17:00 09/30/24 11:18 Insulin Lispro (Admelog) 1 Unit/0.01 Ml Unit SC 10/27/24 16:59 Not Given AC [facility] Protocol Metoprolol Succinate 100 mg 09/27/24 15:45 09/29/24 09:59 Metoprolol Succinate Xl 25 Mg Tabcr PO 10/27/24 15:44 100 mg QDAY RAÚL Administration Ondansetron HCl 4 mg 09/27/24 15:50 09/29/24 00:13 Ondansetron Inj 2 Mg/Ml Inj 2 Ml IV 10/27/24 15:49 4 mg Q6H PRN Administration NAUSEA OR VOMITING Protocol Pantoprazole Sodium 40 mg 09/27/24 16:00 09/30/24 09:17 Pantoprazole Inj 40 Mg Vial IVP 10/27/24 15:59 40 mg QDAY RAÚL Administration Sennosides 1 tab 09/27/24 15:50 Senna Tablet PO 10/27/24 15:49 QDAY PRN constipation Protocol Plan Charles Chavez is a 59 yr male with PMH of HLD, frequent admissions due to recurrent episodes of A-fib RVR with RBBB, [id number] type 2 diabetes, morbid obesity, KODI/OHS on CPAP who presented to ED after experiencing worsening SOB and chest pain. 12 lead EKG showed AFib RVR with RBBB. Patient received one round of electrocardio conversion in and 6 mg adenosine x 1. Patient admitted to ICU for observation s/p cardioversion and treatment for severe sepsis secondary to pneumonia downgraded to telemetry on 09/29/24. #Afib RVR with RBBB In ED, patient received 1 round electrocardio conversion and 6 mg adenosine x 1. Troponins were negative. Unclear at this time if patient was able to follow-up with EP for possible ablation therapy due to recurrent episodes of chest pain and shortness of breath due to the underlying dysrhythmia. Per , patient is to see Dr. Ivey this month. Dr. Lee was consulted and patient was admitted to ICU for observation and treatment of A-fib with RBBB. CHADSVASC score 2 (hx DM) 0.6% stroke risk per year. Plan: -amiodarone drip was started in the ICU, to complete on September 30, 2024 -Pt was transitioned to amiodarone 200 mg p.o. twice daily and metoprolol 100mg Qday however Pt HR remained in the 120's-130's -Per cardio recommendations, will start pt on amio drip after 300mg amio bolus -Started Eliquis 5 Mg daily for anticoagulation in the setting of A-fib -continue to monitor electrolytes keeping potassium >4.0 and Mg >2.0. -Patient is appropriate candidate for cardio ablation therapy. Referral to electrophysiology. Will await cardiology recommendations ? Continue home medication atorvastatin 40 mg daily. #severe sepsis secondary to #RSV pneumonia #Bilateral CAP with possible superimposed -Patient meet SIRS 4/4 criteria with source of infection being pneumonia. Temperature increased to 104.4 while in ED. This alert was called and patient was given 1 L bolus fluids along with 3 L maintenance fluids. -on admission Lactic acid peaked 4.6. WBC 14.5. -Patient has been experiencing shortness of breath with exposure to sick contact 2 days who was positive for RSV. -Chest x-ray suspicious for superimposed pneumonia at lung bases, mild heart failure pattern. Plan: -Sputum culture/Gram stain pending. -Azithromycin 500 mg daily for 5 days 9 (10/02). -Ceftriaxone 2 g IV daily for 5 days (10/02). -Supportive therapy for RSV pneumonia. ? Blood cultures negative ? Urine culture negative #Hx KODI. #Hx OHS. Patient is compliant with CPAP she nightly. Plan: -Continue CPAP at bedtime. #Hx mxd-tbupxdh-bitpvztnd type 2 diabetes #Diabetic neuropathy Patient does not check blood sugars at home. On admission initial glucose 161. Last A1c 5.5 on 10/2023. Patient takes Metformin 500 mg twice daily, Mounjaro 15 mg for diabetes at home. Plan: -Held home medications. -Bedside blood glucose checks AC. -Insulin lispro sliding scale. -Carb consistent low diet. -Continue gabapentin 600 mg daily. #20mm liver lesion. Plan: -follow up outpatient. Health maintenance: Dispo: tele amiodarone drip s/p electrical cardioversion. DVT prophylaxis: Subcu heparin q12hr CODE STATUS: Full code Diet: Low carb consistent, cardiac diet Lines: peripheral. Plan of care discussed with supervising attending Dr. Cyndee Christie M.D. PGY-3
[2024-09-30] MEDS: ATORVASTATIN CALCIUM 20 MG TABLET 40 MG PO (20:34)
[2024-09-30] MEDS: AMIODARONE HCL 200 MG TABLET PO (20:34)
--- NOTE | 2024-09-30 23:30 | EKG_ITS ---
[facility] Test Date: 2024-10-01 Pat Name: TONY SAVAGE Department: Room: S274-A Gender: Male Clinical Nursing Director: MANUELA : 1965 Requested By: Rhonda Bernardo Order Number: [id number] Reading MD: Rhonda Bernardo Measurements Intervals Bard Rate: 131 P: NV: QRS: -7 QRSD: 105 T: -16 QT: 338 QTc: 499 Interpretive Statements ATRIAL FIBRILLATION WITH RAPID VENTRICULAR RESPONSE WITH ABERRANT CONDUCTION OR VENTRICULAR PREMATURE COMPLEXES INFERIOR MYOCARDIAL INFARCTION , OF INDETERMINATE AGE WITH POSTERIOR EXTENSION Compared to ECG 09/28/2024 08:43:51 Aberrant conduction of supraventricular beat(s) now present Ventricular premature complex(es) now present Sinus rhythm no longer present Myocardial infarct finding still present /store/S0/[id number]/[id number].pdf
[2024-10-01] VITALS (23 sets, daily range): BP systolic 104–132; BP diastolic 67–97; PULSE 70–160; RESP 12–24; TEMP 36–36.3; O2SAT 93–99; BMI 45.6
[2024-10-01] MEDS: METOPROLOL SUCCINATE XL 25 MG TABCR 100 MG PO ×2 (00:28→09:52)
[2024-10-01] MEDS: DILTIAZEM in D5W 125 MG 125 MG/125 ML BAG IV (02:16)
[2024-10-01] MEDS: DILTIAZEM in D5W 125 MG 125 MG/125 ML BAG 10 MG IV (02:50)
--- NOTE | 2024-10-01 02:50 | PC.NURSE ---
Patients heart rate remains high at 145-165 atrial fibrillation on the monitor. Patient states if feeling very anxious and just not himself. called and came to bedside. Diltiazem drip increased to 10 ml/hr. New orders for seroquel 25 mg po x 1. Will monitor patient further.
[2024-10-01] MEDS: QUEtiapine FUMARATE 25 MG TABLET PO (03:00)
--- NOTE | 2024-10-01 05:52 | PC.NURSE ---
Dr. Cheng updated on patients status. Heat rate has improved now at 118 -130 atrial fibrillation on the monitor. Patient is resting well. No voiced complaints. No signs of distress. Will monitor further.
--- NOTE | 2024-10-01 07:45 | ESPR_ITS ---
<Statement entered by Keyur Ivey MD - 10/01/24 21:24> I have personally seen and examined the patient separately on the above date of service and discussed the plan of care with the resident. I reviewed the resident Dr. Geiger consultation progress note and agree with the resident findings and plan in the note above and have also edited the documentation to reflect my findings and plan. Patient is supposed to be discharged yesterday but he went into brief episodes of atrial fibrillation with RVR and required diltiazem drip for few hours. Recommend to increase metoprolol Irvona 200 mg twice daily the can discharge along with amiodarone 200 mg twice daily. Continue Xarelto 20 mg once daily for anticoagulation. As documented yesterday patient recommended to follow-up with me in 1 week and will have further discussions with the patient regarding EP referral for possible ablation. Patient wants to discuss with the rest of the family prior to making the decision versus returning back to his previous flecainide as patient's ejection fraction is still good at 55 to 60%. Patient is improving from his RSV infection for now. Management of rest of the medical conditions as per primary team and other consultants. Thank you for the consult and allowing me to participate in the care of the patient. Cardiology will continue to follow. Keyur Ivey M.D. Interventional Cardiology Documentation for date of: 10/01/24 Subjective Subjective Interval history: Patient examined at bedside today. Patient overnight converted back to A-fib and was in the 140s and 150s. Cardizem drip was started for patient, patient currently in the 80s as he is converted back now. Patient was spoken to today and examined, expresses that he did not experience any chest pain or shortness of breath and did not notice much palpitations however he is complaining of some back pain and being in bed. Reaffirms with me that he still wants to get that cardiac ablation and says that he has lost enough weight at this time. Used CPAP last night. Slept well. No other complaints at this time Exam Vital Signs Temp Pulse Resp BP Pulse Ox O2 Del Method O2 Flow Rate 97.2 F 157 H 24 H 116/88 H 99 BiPAP 2 10/01/24 03:32 10/01/24 04:00 10/01/24 03:32 10/01/24 03:32 10/01/24 03:32 10/01/24 03:32 09/30/24 07:18 FiO2 35 10/01/24 02:06 Narrative Exam General: AAOx3, NAD, morbidly obese male, pleasant male HEENT: Moist mucous membranes, conjunctiva clear, EOMI, PERRLA, Cardiovascular: S1, S2, radial pulses +2 bilat, regular rhythm now and rate controlled Pulmonary: CTAB bilat no cough, no wheezing GI: No tenderness to light or deep palpitation, no guarding, rigidity, rebound tenderness or distension Extremities: trace edema in lower extremities bilaterally, dorsalis pedis pulses +2 bilaterally, patch of purpura on LUE near shoulder Neuro: AAOx3, no focal motor or sensory deficits in the UE or LE bilat Psych: Good judgement, thought and behavior, Cooperative. Objective Labs 09/30/24 04:52 09/30/24 04:52 ABG Interpretation ABG results: 09/27/24 14:32 ABG pH 7.40 ABG pCO2 40 ABG pO2 92 ABG HCO3 25 ABG O2 Saturation 98 ABG Base Excess 0 Quality Measures Quality Measures none Assessment & Plan Assessment Current Active Medications: Generic Name Dose Route Start Last Admin Trade Name Freq PRN Reason Stop Dose Admin Acetaminophen 650 mg 09/28/24 11:55 09/28/24 12:02 Acetaminophen 325 Mg Tablet PO 10/27/24 15:49 650 mg Q6H PRN Administration Fever >100.3 or pain (1-3) Hydrocodone Bitart/Acetaminophen 1 tab 09/28/24 19:48 09/28/24 20:15 Hydrocodone/Apap 5/325 Tablet PO 10/03/24 19:47 1 tab Q6HR PRN Administration PAIN SCALE 4-10(Mod-Sev Albuterol/Ipratropium 3 ml 09/30/24 11:00 10/01/24 02:11 Albuterol/Ipratropium (Duoneb) Rt Kristy 3 Ml Nebu INH 10/30/24 10:59 Not Given Q4HRRT RAÚL Amiodarone HCl 200 mg 09/29/24 14:00 09/30/24 20:34 Amiodarone Hcl 200 Mg Tablet PO 10/29/24 13:59 200 mg BID RAÚL Administration Apixaban 5 mg 09/29/24 21:00 09/30/24 20:34 Apixaban 2.5 Mg Tablet PO 10/29/24 20:59 5 mg BID RAÚL Administration Atorvastatin Calcium 40 mg 09/27/24 21:00 09/30/24 20:34 Atorvastatin Calcium 20 Mg Tablet PO 10/27/24 20:59 40 mg HS RAÚL Administration Azithromycin 500 mg 09/29/24 09:00 09/30/24 09:18 Azithromycin 250 Mg Tablet PO 10/02/24 08:59 500 mg QDAY RAÚL Administration Protocol Benzonatate 100 mg 09/30/24 14:00 10/01/24 05:42 Benzonatate 100 Mg Capsule PO 10/30/24 13:59 Not Given Q8HR RAÚL Protocol Budesonide 0.5 mg 09/28/24 10:40 09/30/24 19:00 Budesonide Rt 0.5 Mg/2 Ml Nebu INH 10/28/24 10:39 0.5 mg BIDRT RAÚL Administration Dextrose 25 ml 09/27/24 15:57 Dextrose 50%-Water Inj 50 Ml Syringe IV 10/27/24 15:56 Q15MIN PRN BG 50-70 responsive npo pt Dextrose 50 ml 09/27/24 15:57 Dextrose 50%-Water Inj 50 Ml Syringe IV 10/27/24 15:56 Q15MIN PRN BG <50 OR BG <70 & pt unresponsive Gabapentin 600 mg 09/30/24 09:15 09/30/24 09:19 Gabapentin 300 Mg Capsule PO 10/30/24 09:14 600 mg QDAY RAÚL Administration Glucagon 1 mg 09/27/24 15:57 Glucagon Inj 1 Mg Vial IM Q15MIN PRN BG <70, and no IV access Ceftriaxone Sodium 2 gm/ 50 mls @ 100 mls/hr 09/27/24 16:15 09/30/24 09:17 Sodium Chloride IV 10/02/24 16:14 100 mls/hr QDAY RAÚL Administration Diltiazem HCl 125 mg in 125 mls @ 10 mls/hr 10/01/24 02:46 10/01/24 02:50 Diltiazem In D5w 125 Mg IV 10/31/24 02:45 10 mg/hr .[id number] RAÚL 10 mls/hr Administration 10 MG/HR Insulin Human Lispro 0 unit 09/27/24 17:00 09/30/24 17:03 Insulin Lispro (Admelog) 1 Unit/0.01 Ml Unit SC 10/27/24 16:59 Not Given AC RAÚL Protocol Metoprolol Succinate 100 mg 10/01/24 09:00 Metoprolol Succinate Xl 25 Mg Tabcr PO 10/31/24 08:59 BID RAÚL Ondansetron HCl 4 mg 09/27/24 15:50 09/29/24 00:13 Ondansetron Inj 2 Mg/Ml Inj 2 Ml IV 10/27/24 15:49 4 mg Q6H PRN Administration NAUSEA OR VOMITING Protocol Pantoprazole Sodium 40 mg 09/27/24 16:00 09/30/24 09:17 Pantoprazole Inj 40 Mg Vial IVP 10/27/24 15:59 40 mg QDAY RAÚL Administration Sennosides 1 tab 09/27/24 15:50 Senna Tablet PO 10/27/24 15:49 QDAY PRN constipation Protocol Plan Asssessment Charles Chavez is a 59 yr male with PMH of HLD, frequent admissions due to recurrent episodes of A-fib RVR with RBBB, smv-axllkdr-iovvffjpv type 2 diabetes, morbid obesity, KODI/OHS on CPAP who presented to ED after experiencing worsening SOB and chest pain. 12 lead EKG showed AFib RVR with RBBB. Patient received one round of electrocardio conversion in and 6 mg adenosine x 1. Patient admitted to ICU for observation s/p cardioversion and treatment for severe sepsis secondary to pneumonia. #Afib RVR with RBBB Received 6 mg of Adenosine, in ED, then went into wide QRS tachycardia and was then cardioversion. Pt was then admitted to ICU for further management CHADSVASC score 1 (hx DM) 0.6% stroke risk per year. Finished Amio Drip, currently on Amio 200 PO Pt most likely went into Afib with RVR as pt is experiencing increased stress with RSV pneumonia Was on flecainide 100 mg BID at home, however, would like to resume this at some point rather continuing Amio Patient is a cardiac ablation candidate to be set up outpatient Would like to resume patient on flecainide at some point, will not change metoprolol dosing at this time Echo shows EF 55-60%, G1DD Dilt drip was started for patient, however patient had reverted back to sinus rhythm We do not want patient to be on 3 marce agents, recommend to continue with Amio 200 mg twice daily metoprolol XL 200 mg twice daily upon DC and will need to follow up with Dr. Ivey upon d/c Patient will need to be set up outpatient for cardiac ablation Plan: -Continue Amio 200 po BID -Continue metoprolol succinate 100 mg -Eliquis 5 mg BID -Continue to monitor electrolytes keeping potassium >4.0 and Mg >2.0 ?Treat underlying infection which is what put patient in A-fib most likely #Hx itg-gagiexb-mzipckfkh type 2 diabetes Last A1c of 5.2 in September 2024 Plan: Management by primary hospitalist team #Hx of KODI #Hx of OHS Patient was able to use CPAP last night, patient feels much better in terms of alertness and being awake Maintaining adequate oxygen saturations will allow for patient to be stable and low risk for going into A-fib Currently on 2 L nasal cannula Plan: ?Continue with CPAP at night #Bilateral CAP with possible superimposed. #RSV pneumonia. #20mm liver lesion #Diabetic neuropathy #Severe sepsis 2/2 CAP vs RSV PNA #History of morbid obesity Above managed by primary hospitalist team Patient seen and care discussed with my attending physician, Dr. Uche Mcbride, PGY-1
[2024-10-01] MEDS: BUDESONIDE RT 0.5 MG/2 ML NEBU INH (07:55)
[2024-10-01] MEDS: ALBUTEROL/IPRATROPIUM (Duoneb) RT SOL 3 ML NEBU INH ×3 (07:55→14:43)
[2024-10-01] MEDS: AMIODARONE HCL 200 MG TABLET PO (09:49)
[2024-10-01] MEDS: APIXABAN 2.5 MG TABLET 5 MG PO (09:52)
[2024-10-01] MEDS: GABAPENTIN 300 MG CAPSULE 600 MG PO (09:52)
[2024-10-01] MEDS: AZITHROMYCIN 250 MG TABLET 500 MG PO (09:52)
[2024-10-01] MEDS: cefTRIAXone 2 GM in SODIUM CHLORIDE 0.9% (P) 50 ML IV (09:53)
[2024-10-01] MEDS: PANTOPRAZOLE INJ 40 MG VIAL IVP (09:53)
--- NOTE | 2024-10-01 09:56 | PC.SS ---
Follow up note: Heart rate is not stable. Cardio recommendations pending. Pt will return home upon dc.
--- NOTE | 2024-10-01 10:41 | CHAP ---
Patient was visited by a Spiritual Care Volunteer on 10/01/2024 between 0900 and 1036 and received comfort, encouragement and/or prayer.
[2024-10-01] MEDS: BENZONATATE 100 MG CAPSULE PO (13:18)
--- NOTE | 2024-10-01 14:35 | PD.RESDS ---
Planned Discharge Date 10/01/24 DS: Providers Provider Date of admission: 09/27/24 15:50 Primary care physician: Andrea Lee MD Admitting Provider: Violette Granado MD Attending Provider on Admission: Ciaran Garrett MD Consults: 09/27/24 14:49 Consult to Cardiology Stat Comment: Consulting Provider: Andrea Lee 09/30/24 10:21 Referral Joie Routine Comment: pt requesting Attending Provider on DC: Medina Hansen MD Discharging Provider: Medina Hansen MD Hospital Course Hospital Course Hospital course: Patient examined at bedside today. Patient overnight converted back to A-fib and was in the 140s and 150s. Cardizem drip was started for patient, patient currently in the 80s as he is converted back now. Patient was spoken to today and examined, expresses that he did not experience any chest pain or shortness of breath and did not notice much palpitations however he is complaining of some back pain and being in bed. Reaffirms with me that he still wants to get that cardiac ablation and says that he has lost enough weight at this time. Used CPAP last night. Slept well. No other complaints at this time Time Spent with Patient Time attestation: Total time spent providing and/or coordinating discharge services: Exam Vital Signs Temp Pulse Resp BP Pulse Ox O2 Del Method O2 Flow Rate 96.8 F 81 19 119/71 95 Room Air 2 10/01/24 11:00 10/01/24 12:00 10/01/24 11:00 10/01/24 11:00 10/01/24 11:00 10/01/24 11:00 09/30/24 07:18 FiO2 35 10/01/24 07:56 Discharge Plan Plan Patient Disposition: HOME (Self Care) Disposition Comment: Stable for admission Care Plan Goals: New medications added are Eliquis 5 mg twice daily?to be taken in place of Xarelto, recommend to discontinue Xarelto as Eliquis has better safety profile. Dose increased for metoprolol succinate to 100 mg twice daily . Recommend discontinuing Xarelto, ibuprofen due to concern for bleeding from your GI tract. Please follow-up with your asphalt machine operator within 5 days of discharge from the hospital and reconcile all medications. Recommend to continue 2 more days of antibiotics namely cefpodoxime and azithromycin. Hold taking flecainide, until followup appointment with cardiology. In case of worsening symptoms, please return to the emergency room. Prescriptions/Referrals Prescriptions/Med Rec: New apixaban 5 mg tablet 5 mg PO BID 30 Days Qty: 60 0RF sennosides [Senna Lax] 8.6 mg Tablet 8.6 mg PO QDAY PRN (Reason: constipation) 30 Days Qty: 30 0RF cefpodoxime 200 mg tablet 200 mg PO BID 2 Days Qty: 4 0RF Rx Instructions: must administer with a meal/food azithromycin 500 mg tablet 500 mg PO QDAY 2 Days Qty: 2 0RF Rx Instructions: start on day 2 of therapy amiodarone 200 mg Tablet 200 mg PO BID 30 Days Qty: 60 0RF metoprolol succinate 100 mg capsule,sprinkle,ER 24hr 100 mg PO BID 30 Days Qty: 60 0RF Continued Mounjaro 7.5 mg/0.5 mL pen injector 15 mg SUBCUT QWEEK Patient Comments: INJECT 1 PEN (7.5MG) SUBCUTANEOUSLY ONCE A WEEK DIRECTED Rx Instructions: every sunday metformin 500 mg tablet 500 mg PO BID Patient Comments: TAKE 1 TABLET BY MOUTH TWICE A DAY WITH A MEAL FOR 90 DAYS atorvastatin 40 mg tablet 40 mg PO HS Patient Comments: TAKE 1 TABLET BY MOUTH EVERYDAY AT BEDTIME gabapentin 400 mg capsule 600 mg PO QDAY Patient Comments: TAKE 1 CAPSULE BY MOUTH EVERY DAY fexofenadine [Allergy Relief (fexofenadine)] 180 mg Tablet 180 mg PO QDAY PRN (Reason: Allergy Symptoms) magnesium 100 mg Tablet 100 mg PO QDAY cholecalciferol (vitamin D3) [Vitamin D3] 125 mcg (5,000 unit) Tablet 125 mcg PO QDAY milk thistle seed extract 250 mg Capsule 250 mg PO QDAY Rx Instructions: give with meal/snack Held flecainide 100 mg Tablet 100 mg PO Q12H Hold Instructions: Resume on 10/08/24. Hold until your followup appointment with cardiology. Discontinued metoprolol succinate 50 mg tablet extended release 24 hr 50 mg PO QDAY Patient Comments: TAKE 1 TABLET BY MOUTH EVERY DAY Xarelto 20 mg Tablet 20 mg PO QDAY Rx Instructions: must administer with evening meal ibuprofen [Advil Liqui-Gel] 200 mg Capsule 200 mg PO QDAY aspirin 81 mg Tablet,Delayed Release (Dr/Ec) 81 mg PO QDAY Mens 50+ Daily Formula(gingko) 400-300-120 mcg-mcg-mg Tablet 1 tab PO DAILY Referrals: Andrea Lee MD [Primary Care Provider] - Patient/Caregiver Discharge Instructions Education Materials: My Heart Failure Symptoms Chart, ED About Arrhythmias Print Language: Yi Stand Alone Forms: Alyssa Award Info., Patient Portal Info Letter Discharge Order Discharge Orders: Discharge (Routine); Ordered 10/01/24 Ordered By: Alon Christie
--- NOTE | 2024-10-01 16:59 | PD.RESDS ---
Planned Discharge Date 10/01/24 DS: Providers Provider Date of admission: 09/27/24 15:50 Primary care physician: Andera Lee MD Admitting Provider: Violette Granado MD Attending Provider on Admission: Ciaran Garrett MD Consults: 09/27/24 14:49 Consult to Cardiology Stat Comment: Consulting Provider: Andrea Lee 09/30/24 10:21 Referral Joie Routine Comment: pt requesting Attending Provider on DC: Eugenio Farr MD Discharging Provider: Eugenio Farr MD DS: Diagnosis Problem List Completed Was Problem List Reviewed/Reconciled?: Yes Hospital Course Hospital Course Hospital course: Charles Chavez is a 59 yr male with PMH of HLD, frequent admissions due to recurrent episodes of A-fib RVR with RBBB, gtq-jpkzurd-mqiczlsmr type 2 diabetes, morbid obesity, KODI/OHS on CPAP who presented to ED after experiencing worsening SOB and chest pain. 12 lead EKG showed AFib RVR with RBBB. Patient received one round of electrocardio conversion in and 6 mg adenosine x 1. Patient admitted to ICU for observation s/p cardioversion and treatment for severe sepsis secondary to pneumonia downgraded to telemetry on 09/29/24. Patient met SIRS 4/4 criteria with source of infection being pneumonia. Temperature increased to 104.4 while in ED. on admission Lactic acid peaked 4.6. WBC 14.5. Patient has been experiencing shortness of breath with exposure to sick contact 2 days who was positive for RSV. Chest x-ray suspicious for superimposed pneumonia at lung bases, mild heart failure pattern. Started on antibiotics for superimposed bacterial pneumonia . patient had multiple episodes of A-fib with RVR overnight heart rate in the 140s and 150s, required diltiazem pushes and eventually started on diltiazem drip. Continued on Eliquis, Per cardiology recommendations, Will start the patient on metoprolol 100 mg twice daily and amiodarone 200 mg twice daily, recommended against diltiazem drip, plan to discharge the patient and follow-up with cardiology outpatient for cardiac ablation procedure. The patient is stable, ambulatory, afebrile and tolerating Per oral medications at the time of discharge. The patient understood and agreed to the treatment plan. Follow up with Primary care physician with labs within 3-5 days of discharge. If symptoms persist or worsen, return to the Emergency Department. ?New medications added are f Xarelto, recommend to discontinue Xarelto. Dose increased for metoprolol succinate to 100 mg twice daily . ?Recommend discontinuing ibuprofen due to concern for bleeding from your GI tract. Please follow-up with your communication skills instructor within 5 days of discharge from the hospital and reconcile all medications. ?Recommend to continue 2 more days of antibiotics namely cefpodoxime and azithromycin. ?Hold taking flecainide, until followup appointment with cardiology. ?In case of worsening symptoms, please return to the emergency room. ?Patient is recommended to reconcile with primary care physician within 1 week #Afib RVR with RBBB In ED, patient received 1 round electrocardio conversion and 6 mg adenosine x 1. Troponins were negative. Unclear at this time if patient was able to follow-up with EP for possible ablation therapy due to recurrent episodes of chest pain and shortness of breath due to the underlying dysrhythmia. Per , patient is to see Dr. Ivey this month. Dr. Lee was consulted and patient was admitted to ICU for observation and treatment of A-fib with RBBB. CHADSVASC score 2 (hx DM) 0.6% stroke risk per year. Plan: -amiodarone drip was started in the ICU, to complete on September 30, 2024 -Pt was transitioned to amiodarone 200 mg p.o. twice daily and metoprolol 100mg Qday however Pt HR remained in the 120's-130's -Per cardio recommendations, will start pt on amio drip after 300mg amio bolus -Started Eliquis 5 Mg daily for anticoagulation in the setting of A-fib -continue to monitor electrolytes keeping potassium > 4.0 and Mg >2.0. -Patient is appropriate candidate for cardio ablation therapy. Referral to electrophysiology. Will await cardiology recommendations ? Continue home medication atorvastatin 40 mg daily. #severe sepsis secondary to #RSV pneumonia #Bilateral CAP with possible superimposed -Patient meet SIRS 4/4 criteria with source of infection being pneumonia. Temperature increased to 104.4 while in ED. This alert was called and patient was given 1 L bolus fluids along with 3 L maintenance fluids. -on admission Lactic acid peaked 4.6. WBC 14.5. -Patient has been experiencing shortness of breath with exposure to sick contact 2 days who was positive for RSV. -Chest x-ray suspicious for superimposed pneumonia at lung bases, mild heart failure pattern. Plan: -Sputum culture/Gram stain pending. -Azithromycin 500 mg daily for 5 days 9 (10/02). -Ceftriaxone 2 g IV daily for 5 days (10/02). -Supportive therapy for RSV pneumonia. ? Blood cultures negative ? Urine culture negative #Hx KODI. #Hx OHS. Patient is compliant with CPAP she nightly. Plan: -Continue CPAP at bedtime. #Hx zic-hgcqeid-xoqjpcfmx type 2 diabetes #Diabetic neuropathy Patient does not check blood sugars at home. On admission initial glucose 161. Last A1c 5.5 on 10/2023. Patient takes Metformin 500 mg twice daily, Mounjaro 15 mg for diabetes at home. Plan: -Held home medications. -Bedside blood glucose checks AC. -Insulin lispro sliding scale. -Carb consistent low diet. -Continue gabapentin 600 mg daily. #20mm liver lesion. Plan: -follow up outpatient. Health maintenance: Dispo: tele amiodarone drip s/p electrical cardioversion. DVT prophylaxis: Subcu heparin q12hr CODE STATUS: Full code Diet: Low carb consistent, cardiac diet Lines: peripheral. Plan of care discussed with supervising attending Dr. Tami Farr pgy2 Time Spent with Patient Time attestation: Total time spent providing and/or coordinating discharge services: 30 min Exam Vital Signs Temp Pulse Resp BP Pulse Ox O2 Del Method O2 Flow Rate 97.0 F 85 20 123/71 95 Room Air 2 10/01/24 15:00 10/01/24 15:00 10/01/24 15:10/01/24 15:00 10/01/24 15:00 10/01/24 15:00 09/30/24 07:18 FiO2 35 10/01/24 07:56 Narrative Exam GENERAL: A&Ox3 . Awake, Not in acute distress NEURO: no focal neurological deficits HEENT: Atraumatic, Normocephalic. mucous membranes moist. Eyes open, symmetrical, & clear HEART: Normal Heart Sounds LUNGS: Mild wheeze heard on expiration. ABDOMEN: soft, non-distended, non-tender, bowel sounds heard, no guarding or rebound tenderness SKIN: No Rash or ecchymoses EXTREMITIES: trace LE edema bilaterally, no tenderness, able to move all 4 extremities, pedal pulses palpated Discharge Plan Plan Patient Disposition: HOME (Self Care) Disposition Comment: Stable for admission Care Plan Goals: Recommend to continue with Xarelto 20 mg p.o. daily for atrial fibrillation and stroke prevention. Metoprolol succinate dose increased to 100 mg twice daily. Can finish home medication based on this dosing. Discontinue the use of NSAIDs to prevent risk of GI bleed. Please follow-up with your communication skills instructor within 5 days of discharge from the hospital and reconcile all medications. Recommend to continue 2 more days of antibiotics namely cefpodoxime and azithromycin. Hold taking flecainide, until followup appointment with cardiology. In case of worsening symptoms, please return to the emergency room. Patient is recommended to reconcile with primary care physician within 1 week Prescriptions/Referrals Prescriptions/Med Rec: New sennosides [Senna Lax] 8.6 mg Tablet 8.6 mg PO QDAY PRN (Reason: constipation) 30 Days Qty: 30 0RF amiodarone 200 mg Tablet 200 mg PO BID 30 Days Qty: 60 0RF metoprolol succinate 100 mg capsule,sprinkle,ER 24hr 100 mg PO BID 30 Days Qty: 60 0RF (DME) Contour Plus Test Strip Strip See Rx Instructions .Route Qty: 50 0RF Rx Instructions: As directed (DME) lancets [Comfort Touch Plus Safety Lanc] 30 gauge misc See Rx Instructions .Route Qty: 100 0RF Rx Instructions: As directed Xarelto 20 mg tablet 20 mg PO QDAY Qty: 30 1RF Rx Instructions: must administer with evening meal Continued Mounjaro 7.5 mg/0.5 mL pen injector 15 mg SUBCUT QWEEK Patient Comments: INJECT 1 PEN (7.5MG) SUBCUTANEOUSLY ONCE A WEEK DIRECTED Rx Instructions: every sunday metformin 500 mg tablet 500 mg PO BID Patient Comments: TAKE 1 TABLET BY MOUTH TWICE A DAY WITH A MEAL FOR 90 DAYS atorvastatin 40 mg tablet 40 mg PO HS Patient Comments: TAKE 1 TABLET BY MOUTH EVERYDAY AT BEDTIME gabapentin 400 mg capsule 600 mg PO QDAY Patient Comments: TAKE 1 CAPSULE BY MOUTH EVERY DAY fexofenadine [Allergy Relief (fexofenadine)] 180 mg Tablet 180 mg PO QDAY PRN (Reason: Allergy Symptoms) magnesium 100 mg Tablet 100 mg PO QDAY cholecalciferol (vitamin D3) [Vitamin D3] 125 mcg (5,000 unit) Tablet 125 mcg PO QDAY milk thistle seed extract 250 mg Capsule 250 mg PO QDAY Rx Instructions: give with meal/snack Held flecainide 100 mg Tablet 100 mg PO Q12H Hold Instructions: Resume on 10/08/24. Hold until your followup appointment with cardiology. Discontinued metoprolol succinate 50 mg tablet extended release 24 hr 50 mg PO QDAY Patient Comments: TAKE 1 TABLET BY MOUTH EVERY DAY Xarelto 20 mg Tablet 20 mg PO QDAY Rx Instructions: must administer with evening meal ibuprofen [Advil Liqui-Gel] 200 mg Capsule 200 mg PO QDAY aspirin 81 mg Tablet,Delayed Release (Dr/Ec) 81 mg PO QDAY Mens 50+ Daily Formula(gingko) 400-300-120 mcg-mcg-mg Tablet 1 tab PO DAILY Referrals: Andrea eLe MD [Primary Care Provider] - Patient/Caregiver Discharge Instructions Education Materials: Checking Your Own Blood Pressure, How to Check Your Blood Sugar, My Heart Failure Symptoms Chart, ED About Arrhythmias Print Language: Luxembour[place] Stand Alone Forms: Alyssa Award Info., Patient Portal Info Letter Discharge Order Discharge Orders: Discharge (Routine); Ordered 10/01/24 Ordered By: Alon Christie Quality Discharge Quality Measures VTE prophylaxis Attestestation Attestation I reviewed labs, imaging, EKG, home medications and prior available records. Face to face evaluation was performed by me. I have personally examined the patient and discussed assessment and plan with the IM team. I reviewed the resident note and agree with the plan with exceptions as below. Atrial fibrillation with rapid ventricular response Bilateral lower lobe pneumonia 20 mm liver lesion Will discharge on p.o. metoprolol and p.o. amiodarone in addition to Eliquis Outpatient follow-up with cardiology Continue cefpodoxime and azithromycin for the pneumonia Outpatient follow-up of the liver lesion. Patient is aware of the possibility of malignancy Time spent is 40 minutes. More than 50% of the time was spent on patient education and coordination of care.
--- NOTE | 2024-10-01 19:06 | PC.NURSE ---
During discharge patient and explained that they would not be able to afford medications leaving the hospital. Dr. christie notified. Discharge instructions changed to help meet financial needs. Patient continuing xeralto and not starting eliquis due to finances. Sample bottles of xeralto given to patient as well as coupon for medications. Tried calling vp digital marketing social media and crm in ER due to social economist gone for the day on tele, unable to get a response. Educated patient and to call hospital in morning and reach out to social economist to see if there are any extra resources that can be provided for finances. Dr. Christie aware that patient will try and prioritize antibiotics and amiodarone when getting to pharmacy to see if can afford, but might not be able to get. Patient verbalized understanding of follow up appointments with cardiology and primary care physician. Patient has metoprolol at home 50mg and understands if cant afford 100mg dosage will take 2 pills to meet the 100mg change. Patient stated feels safe going home and will try and grain picker medications from pharmacy on the way home.
== END 2024-10-01 19:01 | disposition home or self-care (01) | DRG 871 ==
LOC: SERX 15:07 → S2NX 09-29 08:22 → SERHOLD 09-29 10:27 → S2NX 09-29 10:27 → S2SX 09-29 10:27
PROVIDERS: Student in an Organized Health Care Education/Training Program; Emergency Provider Emergency Medicine; PCP Internal Medicine Cardiovascular Disease; Visit Provider Student in an Organized Health Care Education/Training Program
DX: A41.89 Other specified sepsis (principal); I49.01 Ventricular fibrillation; J12.1 Respiratory syncytial virus pneumonia; J15.9 Unspecified bacterial pneumonia; J96.01 Acute respiratory failure with hypoxia; E66.2 Morbid (severe) obesity with alveolar hypoventilation; E87.20 Acidosis, unspecified; Z68.42 Body mass index [BMI] 45.0-49.9, adult; R65.20 Severe sepsis without septic shock; E78.00 Pure hypercholesterolemia, unspecified; I48.0 Paroxysmal atrial fibrillation; I45.10 Unspecified right bundle-branch block; K76.9 Liver disease, unspecified; I25.10 Atherosclerotic heart disease of native coronary artery without angina pectoris; I10 Essential (primary) hypertension; E11.40 Type 2 diabetes mellitus with diabetic neuropathy, unspecified; Z56.0 Unemployment, unspecified; Z99.89 Dependence on other enabling machines and devices; Z79.84 Long term (current) use of oral hypoglycemic drugs; Z79.01 Long term (current) use of anticoagulants; Z79.899 Other long term (current) drug therapy; Z79.85 Long-term (current) use of injectable non-insulin antidiabetic drugs
CPT/HCPCS: 36415; 36600; 71045; 80053; 80061; 81001; 82803; 83036; 83605; 83735; 83880; 84100; 84145; 84443; 84484; 85025; 87040; 87081; 87086; 87205; 87400; 87502; 87634; 87635; 87651; 87811; 92610; 93005; 93225; 93306; 94640; 94660; 96365; 96367; 96374; 96375; 99291; A9270; J0153; J0282; J0283; J0456; J0696; J1643; J1815; J1940; J2250; J2405; J2470; J3010; J3475; J3480; J3490; J7030; J7050

== ENCOUNTER → 2024-12-02 | Outpatient (CLI) | payer BC, SELFPAY ==
[2024-12-02 12:57] LABS: Vitamin B12 408 pg/mL (211-911); Vitamin D 25 Hydroxy Total 54.1 ng/mL (7.3-40.2)
== END | disposition home or self-care (01) ==
LOC: COPL 11:16
PROVIDERS: PCP Family Medicine; Referring Provider Psychiatry & Neurology Neurology; Visit Provider Psychiatry & Neurology Neurology
DX: E11.49 Type 2 diabetes mellitus with other diabetic neurological complication (principal)
CPT/HCPCS: 36415; 82306; 82607